=== PATIENT | male | born 1970 | race Caucasian/White ===

== ENCOUNTER 2021-01-31 10:47 | Outpatient (REF) | payer OTHER, SELFPAY ==
[2021-01-31 11:53] LABS: Hematocrit 43.7 % (42-52); Mean Corpuscular HGB Conc 34.3 g/dl (31.0-36.0); Mean Corpuscular Volume 96.3 fL (80-98); Mean Platelet Volume 11.5 fL (9.4-12.4); Platelet Count 230 X10*3/uL (160-400); Red Blood Count 4.54 X10*6/uL (4.60-5.80); Red Cell Distribution Width 12.8 % (11.0-16.0); White Blood Count 7.6 X10*3/uL (4.8-10.8)
[2021-01-31 12:06] LABS: Alanine Aminotransferase 23 U/L (0-40); Albumin Level 4.2 g/dL (3.5-5.0); Alkaline Phosphatase 103 U/L (39-117); Anion Gap 11 (12-20); Aspartate Amino Transferase 23 U/L (5-37); Bilirubin Total 0.7 mg/dL (0.0-1.0); Blood Urea Nitrogen 10 mg/dL (9-16); Calcium 9.4 mg/dL (8.4-10.2); Carbon Dioxide 26 mmol/L (22-29); Chloride 106 mmol/L (96-108); Cholesterol 111 mg/dL; Estimated Glomerular Filt Rate > 60; Glucose Fasting 89 mg/dL (60-99); HDL Cholesterol 32 mg/dL; LDL Cholesterol Calculated 71 mg/dl; Potassium 4.3 mmol/L (3.3-5.1); Sodium 139 mmol/L (135-145); Total Protein 6.5 g/dL (6.5-8.0); Triglycerides 44 mg/dL
[2021-01-31 12:50] LABS: TSH reflex Free T4 1.05 uIU/mL (0.32-4.0)
== END 2021-01-31 10:48 | disposition home or self-care (01) ==
LOC: HO.LAB 10:47
PROVIDERS: PCP Physician Assistant; Visit Provider Physician Assistant
DX: E78.5 Hyperlipidemia, unspecified (principal); I10 Essential (primary) hypertension
CPT/HCPCS: 36415; 80053; 80061; 84443; 85027

== ENCOUNTER 2021-11-28 13:00 | Outpatient (RCR) | payer OTHER, SELFPAY ==
--- NOTE | 2022-04-19 09:08 | MHC.PT.DC ---
[facility] [place] Office [place] Office [place] Office [address] Reuben Barbosa [address] [phone] F: [phone] F: [phone] F: [phone] F: [phone] Physical Therapy Discharge Report Diagnosis: Disorder of the spine - cervical Date of Surgery: n/a Date of Evaluation: 10/03/21 Date of Discharge: 12/10/21 Treatments to Date: 10 Cancellations to Date: No Shows to Date: Discharge Status: Improved Function Independent with HEP Discharge Summary: 11/28/21: pt progressed well over the course of skilled PT. i educated in posture, pathology and progression with HEP. he is I with HEP. He has normal pec flexibility and is improved with his functional ability to work overhead. he is appropriate to d/c to HEP at this time. 11/14/21: reviewed all ex and mechanics. educated on consistency. we will plan to d/c to HEP NV. 11/07/21: pt progressing well overall with less discomfort with overhead activities. improved tolerance for pec stretching and scap strength ex. 10/31/21: pt progressing well with overhead activities, pec stretching, reduced s/s. 10/23/21: pt still with n/t in UEs with prolonged overhead activities. able to perform 10 wall pounds before onset of s/s. 10/17/21: pt with still with L sided shoulder pain prevaling. we added supine punches with blue TB to HEP. we will issue updated HEP NV. 10/10/21: responding well to program so far. will assess how progression translates to functional improvement NV. 10/09/21: pt progressed with strength and postural intervention. he will return tomorrow and we will assess response and progress as tolerated. Patient is a 51 year old R handed male who presents with s/s consistent with cervical pain resulting in n/t and coldness in b/l hands, > on R. 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 Patient past medical history is fairly unremarkable. Current impairments include pain, posture, ROM, strength, activity tolerance and functional mobility. Functional limitations include decreased ability to .perform sustained overhead activities. Patient is motivated with good rehab potential. Skilled PT will address impairments and functional limitations in order to achieve goals. Electronically signed by: Lico Ferreira, PT Please sign and return to therapist. Thank you for your referral.
== END 2022-04-19 09:08 | disposition home or self-care (01) ==
LOC: HO.PTCHIC 13:00
PROVIDERS: PCP Physician Assistant; Visit Provider Physician Assistant
DX: M51.9 Unspecified thoracic, thoracolumbar and lumbosacral intervertebral disc disorder (principal); G95.9 Disease of spinal cord, unspecified
CPT/HCPCS: 97110; 97140; 97161

== ENCOUNTER 2022-02-24 09:30 | Outpatient (REF) | payer OTHER, SELFPAY ==
[2022-02-24 09:55] LABS: Hematocrit 43.8 % (42.0-52.0); Hemoglobin 15.4 g/dl (14.0-18.0); Mean Corpuscular HGB Conc 35.2 g/dl (31.0-36.0); Mean Corpuscular Volume 93.8 fL (80.0-98.0); Mean Platelet Volume 10.9 fL (9.4-12.4); Platelet Count 251 X10*3/uL (160-400); Red Blood Count 4.67 X10*6/uL (4.60-5.80); Red Cell Distribution Width 12.6 % (11.0-16.0); White Blood Count 8.1 X10*3/uL (4.8-10.8)
[2022-02-24 10:07] LABS: Alanine Aminotransferase 16 U/L (0-40); Albumin Level 4.3 g/dL (3.5-5.0); Alkaline Phosphatase 96 U/L (39-117); Anion Gap 12 (12-20); Aspartate Amino Transferase 23 U/L (5-37); Bilirubin Total 0.6 mg/dL (0.0-1.0); Blood Urea Nitrogen 8 mg/dL (9-16); Calcium 9.1 mg/dL (8.4-10.2); Carbon Dioxide 27 mmol/L (22-29); Chloride 106 mmol/L (96-108); Cholesterol 163 mg/dL; Estimated Glomerular Filt Rate > 60; Glucose Fasting 89 mg/dL (60-99); HDL Cholesterol 32 mg/dL; LDL Cholesterol Calculated 117 mg/dl; Potassium 4.3 mmol/L (3.3-5.1); Sodium 141 mmol/L (135-145); Total Protein 6.8 g/dL (6.5-8.0); Triglycerides 73 mg/dL
[2022-02-24 10:27] LABS: TSH reflex Free T4 1.73 uIU/mL (0.32-4.0)
== END 2022-02-24 09:31 | disposition home or self-care (01) ==
LOC: HO.LAB 09:30
PROVIDERS: PCP Physician Assistant; Visit Provider Physician Assistant
DX: E78.5 Hyperlipidemia, unspecified (principal); I10 Essential (primary) hypertension
CPT/HCPCS: 36415; 80053; 80061; 84443; 85027

== ENCOUNTER 2023-04-02 13:20 | Outpatient (AMB) | payer OTHER, SELFPAY ==
--- NOTE | 2023-04-02 13:20 | MHC.PC.OV ---
Vital Signs 04/02/23 13:22 Height 5 ft 8 in Weight 163 lb BMI 24.8 BP 110/64 Blood Pressure Location Lt brachial Position Sitting Pulse 93 Pulse Source Pulse Oximeter Pulse Oximetry (%) 96 Oxygen Delivery Method Room Air Intake Visit Reasons: PE Intake Note: Patient is here today for a physical. 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 Required: No Worm Grower: Not Required per policy Accompanied by: Self / Same As Patient Allergies poppyseed oil Allergy (Unknown, Verified 04/02/23 14:10) BURNING IN CHEST AND LETHARGIC pollen Allergy (Unknown, Uncoded 04/02/23 13:21) rash Medication List - Last Reconciled 04/02/23 by Ronald Potts PA-C epinephrine 0.3 mg IM Q10M PRN lorazepam 1 mg PO BEDTIME 5 days Tobacco use date assessed: 04/02/23 Dental Screening Dental Screen Date: 04/02/23 Did you have a dental visit in the last 12 months?: Yes Did you have a dental problem in the last 6 months where you did not have access to dental care?: No Was dental information given to patient?: Patient has dentist HPI PE HPI Details Patient is a 53 y/o M here today for an annual physical. Patient has a past medical history significant for hyperlipidemia, panic disorder, migraines, IBS-C,? tobacco use disorder. .. .IBS- C:? Reports he has been suffering with IBS constipation type for many years now.? He reports he has a strong sense of anxiety chest before he has a bowel movement.? Has trialed many [id number] that have been unsecucessful. Also was prscribed IBS specific med that was unhelpful.? He does try to increase his fiber and fluids in his diet though feels it is not much. .. Migraines:? Followed by Neurology, takes Tylenol or NSAIDs p.r.n. for headaches.? He is interested in starting an as-needed medication for his migraines.? He believes his migraines are secondary to his GI issues. .. HLD: Has been statin therapy without any side effect.? We have discontinued his cholesterol medication and lipid panel has remained acceptable. Will continue to work on lifestyle modifications on reducing his high cholesterol. Unfortunately continues to smoke and does understand he needs to cut down and completely quit. .. Tobacco use disorder: Smokes 6 per day and reports he has not to willing to reduce his smoking at this time.? He feels smoking cigarettes helps him with his anxiety.. Vaccines:? Up-to-date with COVID vaccine, up-to-date with pneumonia vaccine, up-to-date with flu vaccine, Need Shingles vavccine, UTD with Tdap. . Colorectal cancer screening: Has gotten Colonoscopies every 6 years [facility] Medical History Normal colonoscopy Surgical History History of third molar tooth extraction, class I edentulism History of tooth extraction Family History Father Pancreatic cancer Mother Breast cancer Liver cancer Social History Housing: House Alcohol intake: never Patient Tobacco Use Status: Current everyday Tobacco user Tobacco use type: Cigarette Cigarette Packs Per Day: 0.5 Cigarettes Per Day: 10 e-Cigarette/Vaping Use: Never Used Second Hand Smoke Exposure: Yes service: No Current occupational status: 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 1. Little interest or pleasure in doing things: not at all 2. Feeling down, depressed, or hopeless: several days 3. Trouble falling or staying asleep, or sleeping too much: not at all 4. Feeling tired or having little energy: more than half the days 5. Poor appetite or overeating: not at all 6. Feeling bad about yourself - or that you are a failure or have let yourself or your family down: not at all 7. Trouble concentrating on things, such as reading the newspaper or watching television: several days 8. Moving or speaking so slowly that other people could have noticed. Or the opposite - being so fidgety or restless that you have been moving around a lot more than usual: not at all 9. Thoughts that you would be better off or of hurting yourself in some way: not at all Total score: 4 Depression Screening Interpretation: Negative 46322 - PHQ-9 Billing: Yes Source: Developed by Drs. Severiano Rodríguez, Aide Verde, Dorian Rowan and colleagues, with an educational batsheva from [employer]. Thrive Questionnaire Date Thrive assessed: 04/02/23 I am a: Patient What is your living situation today?: I have a steady place to live Within the past 12 months, did the food you bought not last and you didn't have the money to get more?: Never true Within the past 12 months, did you worry whether your food would run out before you got money to buy more?: Never true Do you have trouble paying for medicines?: No Do you have trouble getting transportation to medical appointments?: No Do you have trouble paying your heating and electricity bill?: No Do you have trouble taking care of your child, family member or friend?: No Do you have trouble with day-to-day activities such as bathing, preparing meals, shopping, managing finances, etc.?: No Are you currently unemployed and looking for a job?: No Are you interested in more education?: No Currently or been in a relationship where the following occur: no concerns reported AUDIT C Alcohol Use Questionnaire (AUDIT-C) 1. How often do you have a drink containing alcohol?: Never Total Score: 0 XOCHITL-7 AMB Questionnaire XOCHITL-7 Date XOCHITL - 7 assessed: 04/02/23 Feeling nervous, anxious, or on edge: 3 = Nearly every day Not being able to stop or control worryin = Not at all Worrying too much about different things: 0 = Not at all Trouble relaxin = Nearly every day Being so restless that it is hard to sit still: 0 = Not at all Becoming easily annoyed or irritable: 1 = Several days Feeling afraid as if something awful might happen: 1 = Several days Total XOCHITL-7 score (0-4 normal; 5-9 mild; 10-14 moderate; 15-21 severe): 8 Source: Developed by Drs. Severiano Rodríguez, Dorian Metcalf and colleagues, with an educational batsheva from [employer]. XOCHITL-7 Assessment Billing XOCHITL-7 Assessment Tool: XOCHITL-7 Assessment 47397 Review of Systems Const Denies body aches, Denies chills, Denies excessive sweating, Denies fatigue, Denies fever(s) and Denies headache(s) Eyes Denies blurry vision ENT Denies dysphagia, Denies vertigo, Denies dizziness, Denies headache(s), Denies hearing loss and Denies tinnitus Card Denies chest pain, Denies chest pain with activity, Denies syncope, Denies irregular heart rhythm and Denies dyspnea Resp Denies chest congestion, Denies cough, Denies hemoptysis, Denies dyspnea and Denies wheezing GI Reports abdominal pain, Denies melena, Denies hematochezia, Denies coffee ground emesis, Reports GI cramping, Denies dysphagia, Reports fecal incontinence, Denies diarrhea, Denies nausea and Denies vomiting Denies difficulty urinating, Denies dysuria, Denies urinary frequency, Denies urinary hesitancy and Denies urinary urgency Musc Denies arthralgias, Denies limited range of motion, Denies muscle cramps and Denies muscle weakness Skin/Breast Denies rash and Denies skin ulcer Neuro Denies Abnormal speech present, Denies confusion, Denies vertigo, Denies dizziness, Denies syncope, Denies headache(s), Denies memory loss and Denies seizure-like activity Psych Denies anxiety, Denies confusion, Denies depression, Denies memory loss, Denies panic attacks and Denies paranoia Endo Denies excessive sweating, Denies fatigue, Denies flushing, Denies polydipsia and Denies polyuria Aller/Immun Denies wheezing Physical exam (Primary Care) Vital Signs: Last Vital Signs Pulse 93 04/02/23 13:22 BP 110/64 04/02/23 13:22 Pulse Ox 96 04/02/23 13:22 Oxygen Delivery Method Room Air 04/02/23 13:22 BMI result Body Mass Index 24.8 Tobacco/Smoking Status: Tobacco use Status Tobacco use date assessed 04/02/23 04/02/23 13:28 Patient Tobacco Use Status Current everyday Tobacco 04/02/23 13:28 Tobacco use type Cigarette 04/02/23 13:28 e-Cigarette/Vaping Use Never Used 04/02/23 13:28 Are you ready to quit: No Tobacco cessation counseling provided: Yes Relapse Prevention: discussed the importance of a supportive environment, discussed negative mood or depression after quitting, weight gain after smoking is common and discussed dietary, exercise and/or lifestyle changes Number of minutes spent counselin CPT code: 72396 - 4-10 Minutes PHQ-9: PHQ-9 Score PHQ-9: Total score 4 04/03/23 08:43 Depression Screening Interpretation: Negative Thrive Assessment: Date of Thrive Assessment Date Thrive assessed 04/02/23 04/02/23 13:28 Currently or been in a relationship where the following occur: no concerns reported Const General: cooperative, comfortable, no acute distress, alert and awake; No confusion Orientation/consciousness: oriented to person, oriented to place, patient oriented x3 and No confusion HENMT Head: Yes normocephalic Ears: external ears normal and TM's normal bilaterally Face and sinus: No sinus tenderness Mouth: Normal oral and palatal mucosa present and tongue normal Teeth and gingiva: dentition normal and gingiva normal Throat: Yes posterior oropharynx normal, Yes tonsils normal and Yes uvula midline Eyes Conjunctivae: conjunctivae normal Sclerae: sclerae normal Pupils: Equal, round and reactive pupils present EOM: EOMs intact bilaterally Direct Ophthalmoscopy: No no photophobia Neck Neck: Yes no lymphadenopathy, No tender and Yes no JVD Thyroid: Thyroid normal Carotids: no bruits Chest Chest palpation & inspection: no tenderness Resp Effort & Inspection: normal respiratory effort, no audible wheezes, not labored and no stridor Auscultation: no crackles, no rales, no rhonchi and no wheezes Cardio Jugular venous distension: no JVD Rate: regular rate, not bradycardic and not tachycardic Rhythm: regular rhythm Bruits: no carotid bruits Peripheral pulses: Peripheral pulses 2+ throughout GI Inspection: Yes normal to inspection, No abdominal wall ecchymosis and No visible herniation Palpation (GI): Soft to palpation, nontender, no guarding, not rigid and No hepatosplenomegaly present Auscultation: normoactive bowel sounds General: Yes no CVA tenderness Back/Spine/Pelvis Back: no CVA tenderness and No back tenderness Cervical Spine: cervical ROM normal Thoracic/Lumbar Spine: thoracic and lumbar spine normal to inspection, straight leg raise negative bilaterally, No thoraco-lumbar ROM limited and No lumbar spinal tenderness Skin Lesions: no lesions Rashes: no rashes Wounds: no wounds Neuro General: oriented to person, oriented to place, patient oriented x3, CN's II-XI intact bilaterally and No confusion Cranial nerves: Yes Equal, round and reactive pupils present and Yes Normal accommodation reflex present Cognition (Neuro): normal cognition Speech: No Abnormal speech present Gait exam (Neuro): Normal gait present Motor exam (neuro): 5/5 motor strength present throughout Extrem Right upper extremity: full ROM; no cyanosis Left upper extremity: full ROM; no cyanosis Right lower extremity: no edema Left lower extremity: no edema Psych Appearance: grossly normal Mental Status: mental status grossly normal Affect: normal affect Attitude: cooperative Thought process: Normal thought process present Assessment and Plan Assessment & Plan (1) Annual physical exam: Code(s): Z00.00 - Encounter for general adult medical examination without abnormal findings (2) Tobacco dependence: Code(s): F17.200 - Nicotine dependence, unspecified, uncomplicated Plan: Patient does understand he needs to quit smoking, declines my offers to start nicotine replacement or medication to help him quit smoking. He will try to cut down his cigarette smoking on his own. (3) HLD (hyperlipidemia): Code(s): E78.5 - Hyperlipidemia, unspecified Qualifiers: Hyperlipidemia type: mixed hyperlipidemia Qualified Code(s): E78.2 - Mixed hyperlipidemia Plan: Currently patient's cholesterol is lifestyle controlled without medication. Was previously statin therapy though has been able to manage with lifestyle.. Will continue monitoring fasting lipid panel. Orders: Orders Comprehensive Turner. Panel Fast 04/02/23 E78.2 - Mixed hyperlipidemia Lipid Panel 04/02/23 E78.2 - Mixed hyperlipidemia Complete Blood Count no Diff 04/02/23 E78.2 - Mixed hyperlipidemia Prostate Specific Antigen Scr 04/02/23 E78.2 - Mixed hyperlipidemia, Z12.5 - Encounter for screening for malignant neoplasm of prostate Coding Level of Care Code Est Pt Prev Care 40-64y(27267) Diagnoses Annual physical exam Z00.00 Tobacco dependence F17.200 Mixed hyperlipidemia E78.2 Hyperlipidemia type: mixed hyperlipidemia Additional Codes XOCHITL-7 Assessment Billing - XOCHITL-7 Assessment Tool: XOCHITL-7 Assessment 05454 ([id number]) Vital Signs *Quality* - CPT code: 40785 - 4-10 Minutes ([id number])
[2023-04-02 13:22] VITALS: BP 110/64; PULSE 93; O2SAT 96; BMI 24.8
== END 2023-04-02 14:32 | disposition home or self-care (01) ==
PROVIDERS: PCP Physician Assistant; Visit Provider Physician Assistant
DX: Z00.00 Encounter for general adult medical examination without abnormal findings (principal); F17.210 Nicotine dependence, cigarettes, uncomplicated; E78.2 Mixed hyperlipidemia
CPT/HCPCS: 99396

== ENCOUNTER 2023-05-16 07:54 | Outpatient (REF) | payer OTHER, SELFPAY ==
[2023-05-16 08:15] LABS: Hematocrit 43.9 % (42.0-52.0); Hemoglobin 14.8 g/dl (14.0-18.0); Mean Corpuscular HGB Conc 33.7 g/dl (31.0-36.0); Mean Platelet Volume 10.8 fL (9.4-12.4); Platelet Count 254 X10*3/uL (160-400); Red Blood Count 4.62 X10*6/uL (4.60-5.80); Red Cell Distribution Width 12.8 % (11.0-16.0); White Blood Count 9.3 X10*3/uL (4.8-10.8)
[2023-05-16 08:44] LABS: Alanine Aminotransferase 15 U/L (0-40); Albumin Level 4.2 g/dL (3.5-5.0); Alkaline Phosphatase 97 U/L (39-117); Anion Gap 12 (12-20); Aspartate Amino Transferase 22 U/L (5-37); Bilirubin Total 0.6 mg/dL (0.0-1.0); Blood Urea Nitrogen 12 mg/dL (9-16); Calcium 9.7 mg/dL (8.4-10.2); Carbon Dioxide 26 mmol/L (22-29); Chloride 106 mmol/L (96-108); Cholesterol 169 mg/dL (<200); Estimated Glomerular Filt Rate > 60; Glucose Fasting 88 mg/dL (60-99); HDL Cholesterol 38 mg/dL (>40); LDL Cholesterol Calculated 112 mg/dL (<100); Potassium 4.1 mmol/L (3.3-5.1); Sodium 140 mmol/L (135-145); Total Protein 6.8 g/dL (6.5-8.0); Triglycerides 96 mg/dL (<150)
[2023-05-16 08:58] LABS: Prostate Specific Antigen Scr 0.59 ng/mL (<0.05-4.0)
== END 2023-05-16 07:55 | disposition home or self-care (01) ==
LOC: HO.LAB 07:54
PROVIDERS: PCP Physician Assistant; Visit Provider Physician Assistant
DX: Z12.5 Encounter for screening for malignant neoplasm of prostate (principal); E78.2 Mixed hyperlipidemia
CPT/HCPCS: 36415; 80053; 80061; 84153; 85027

== ENCOUNTER 2024-04-06 13:25 | Outpatient (AMB) | payer OTHER, SELFPAY ==
--- NOTE | 2024-04-06 13:26 | MHC.PC.OV ---
Vital Signs 04/06/24 13:34 Height 5 ft 8 in Weight 159 lb BMI 24.2 BP 100/70 Blood Pressure Location Lt brachial Position Sitting Pulse 96 Pulse Source Pulse Oximeter Pulse Oximetry (%) 97 Oxygen Delivery Method Room Air Intake Visit Reasons: pe Intake Note: Patient is here today for a physical. 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 Accompanied by: Self / Same As Patient Allergies poppyseed oil Allergy (Unknown, Verified 04/06/24 13:35) BURNING IN CHEST AND LETHARGIC pollen Allergy (Unknown, Uncoded 04/06/24 13:35) rash Medication List - Last Reconciled 04/06/24 by Ronald Potts PA-C epinephrine 0.3 mg IM Q10M PRN lorazepam 1 mg PO BEDTIME 5 days Tobacco use date assessed: 04/02/23 Dental Screening Dental Screen Date: 04/06/24 Did you have a dental visit in the last 12 months?: Yes Did you have a dental problem in the last 6 months where you did not have access to dental care?: No Was dental information given to patient?: Patient has dentist HPI pe HPI Details Patient is a 54 y/o M here today for an annual physical. Patient has a past medical history significant for hyperlipidemia, panic disorder, migraines, IBS-C,? tobacco use disorder. .. .IBS- C:? Reports he has been suffering with IBS constipation type for many years now.? He reports he has a strong sense of anxiety chest before he has a bowel movement.? Has trialed many [id number] that have been unsecucessful. Also was prscribed IBS specific med that was unhelpful.? He does try to increase his fiber and fluids in his diet though feels it is not much. HLD: Has been statin therapy without any side effect.? We have discontinued his cholesterol medication and lipid panel has remained acceptable. Will continue to work on lifestyle modifications on reducing his high cholesterol. Unfortunately continues to smoke and does understand he needs to cut down and completely quit. .. Tobacco use disorder: Smokes 6-10 per day and reports he has not to willing to reduce his smoking at this time.? He feels smoking cigarettes helps him with his anxiety.. Vaccines:? Up-to-date with COVID vaccine, up-to-date with pneumonia vaccine, up-to-date with flu vaccine, Need Shingles vavccine, UTD with Tdap. . Colorectal cancer screening: Has gotten Colonoscopies every 6 years in [place]- likely need new colonoscopy done. [facility] Medical History (Updated 04/06/24 @ 13:57 by Ronald Potts PA-C) Cervical myelopathy Normal colonoscopy Surgical History History of tooth extraction History of third molar tooth extraction, class I edentulism Family History (Updated 04/06/24 @ 13:40 by Ronald Potts PA-C) Father Pancreatic cancer Mother Breast cancer Liver cancer Maternal Grandfather Heart disease Social History Housing: House Alcohol intake: never Patient Tobacco Use Status: Current everyday Tobacco user Tobacco use type: Cigarette Cigarette Packs Per Day: 0.5 Cigarettes Per Day: 10 e-Cigarette/Vaping Use: Never Used Second Hand Smoke Exposure: Yes service: No Current occupational status: 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 1. Little interest or pleasure in doing things: several days 2. Feeling down, depressed, or hopeless: several days 3. Trouble falling or staying asleep, or sleeping too much: not at all 4. Feeling tired or having little energy: several days 5. Poor appetite or overeating: several days 6. Feeling bad about yourself - or that you are a failure or have let yourself or your family down: not at all 7. Trouble concentrating on things, such as reading the newspaper or watching television: several days 8. Moving or speaking so slowly that other people could have noticed. Or the opposite - being so fidgety or restless that you have been moving around a lot more than usual: not at all 9. Thoughts that you would be better off or of hurting yourself in some way: not at all Total score: 5 Depression Screening Interpretation: Positive Depression Screening Follow-up: Existing condition and Declines treatment Depression Screening Done: Yes 19624 - PHQ-9 Billing: Yes Source: Developed by Gino Gutierrezet B.W. Ammon, Dorian Rowan and colleagues, with an educational batsheva from [employer]. Thrive Questionnaire Date Thrive assessed: 04/06/24 I am a: Patient What is your living situation today?: I have a steady place to live Within the past 12 months, did the food you bought not last and you didn't have the money to get more?: Never true Within the past 12 months, did you worry whether your food would run out before you got money to buy more?: Never true Do you have trouble paying for medicines?: No Do you have trouble getting transportation to medical appointments?: No Do you have trouble paying your heating and electricity bill?: No Do you have trouble taking care of your child, family member or friend?: No Do you have trouble with day-to-day activities such as bathing, preparing meals, shopping, managing finances, etc.?: No Are you currently unemployed and looking for a job?: No Are you interested in more education?: I choose not to answer this question Please select the resources that you would like help with: None Currently or been in a relationship where the following occur: No concerns reported THRIVE Score: 0 AUDIT C Alcohol Use Questionnaire (AUDIT-C) 1. How often do you have a drink containing alcohol?: Never 3. How often do you have six or more drinks on one occasion?: Never Total Score: 0 XOCHITL-7 AMB Questionnaire XOCHITL-7 Date XOCHITL - 7 assessed: 04/06/24 Feeling nervous, anxious, or on edge: 1 = Several days Not being able to stop or control worryin = Not at all Worrying too much about different things: 0 = Not at all Trouble relaxin = Several days Being so restless that it is hard to sit still: 0 = Not at all Becoming easily annoyed or irritable: 0 = Not at all Feeling afraid as if something awful might happen: 1 = Several days Total XOCHITL-7 score (0-4 normal; 5-9 mild; 10-14 moderate; 15-21 severe): 3 Source: Developed by Drs. Severiano Rodríguez, Aide Verde, Dorian Rowan and colleagues, with an educational batsheva from [employer]. XOCHITL-7 Assessment Billing XOCHITL-7 Assessment Tool: XOCHITL-7 Assessment 99855 Review of Systems Const Denies body aches, Denies chills, Denies excessive sweating, Denies fatigue, Denies fever(s) and Denies headache(s) Eyes Denies blurry vision ENT Denies dysphagia, Denies vertigo, Denies dizziness, Denies headache(s), Denies hearing loss and Denies tinnitus Card Denies chest pain, Denies chest pain with activity, Denies syncope, Denies irregular heart rhythm and Denies dyspnea Resp Denies chest congestion, Denies cough, Denies hemoptysis, Denies dyspnea and Denies wheezing GI Reports abdominal pain, Denies melena, Reports bloating, Denies hematochezia, Denies coffee ground emesis, Denies dysphagia, Denies diarrhea, Denies nausea and Denies vomiting Denies difficulty urinating, Denies dysuria, Denies urinary frequency, Denies urinary hesitancy and Denies urinary urgency Musc Denies arthralgias, Denies limited range of motion, Denies muscle cramps and Denies muscle weakness Skin/Breast Denies rash and Denies skin ulcer Neuro Denies Abnormal speech present, Denies confusion, Denies vertigo, Denies dizziness, Denies syncope, Denies headache(s), Denies memory loss and Denies seizure-like activity Psych Denies anxiety, Denies confusion, Denies depression, Denies memory loss, Denies panic attacks and Denies paranoia Endo Denies excessive sweating, Denies fatigue, Denies flushing, Denies polydipsia and Denies polyuria Aller/Immun Denies wheezing Physical exam (Primary Care) Vital Signs: Last Vital Signs Pulse 96 04/06/24 13:34 BP 100/70 04/06/24 13:34 Pulse Ox 97 04/06/24 13:34 Oxygen Delivery Method Room Air 04/06/24 13:34 BMI result Body Mass Index 24.2 Tobacco/Smoking Status: Tobacco use Status Tobacco use date assessed 04/02/23 04/06/24 13:27 Patient Tobacco Use Status Current everyday Tobacco 04/06/24 13:27 Tobacco use type Cigarette 04/06/24 13:27 e-Cigarette/Vaping Use Never Used 04/06/24 13:27 Are you ready to quit: No Tobacco cessation counseling provided: Yes Items discussed: Nicotine replacement Relapse Prevention: discussed the importance of a supportive environment, discussed negative mood or depression after quitting, weight gain after smoking is common and discussed dietary, exercise and/or lifestyle changes Number of minutes spent counselin CPT code: 25738 - 4-10 Minutes PHQ-9: PHQ-9 Score PHQ-9: Total score 5 04/06/24 13:27 Depression Screening Interpretation: Positive Depression Screening Follow-up: Existing condition and Declines treatment Thrive Assessment: Date of Thrive Assessment Date Thrive assessed 04/06/24 04/06/24 13:27 Currently or been in a relationship where the following occur: No concerns reported Const General: cooperative, comfortable, no acute distress, alert and awake; No confusion Orientation/consciousness: oriented to person, oriented to place, patient oriented x3 and No confusion HENMT Head: Yes normocephalic Ears: external ears normal and TM's normal bilaterally Face and sinus: No sinus tenderness Mouth: Normal oral and palatal mucosa present and tongue normal Teeth and gingiva: dentition normal and gingiva normal Throat: Yes posterior oropharynx normal, Yes tonsils normal and Yes uvula midline Eyes Conjunctivae: conjunctivae normal Sclerae: sclerae normal Pupils: Equal, round and reactive pupils present EOM: EOMs intact bilaterally Direct Ophthalmoscopy: No no photophobia Neck Neck: Yes no lymphadenopathy, No tender and Yes no JVD Thyroid: Thyroid normal Carotids: no bruits Chest Chest palpation & inspection: no tenderness Resp Effort & Inspection: normal respiratory effort, no audible wheezes, not labored and no stridor Auscultation: no crackles, no rales, no rhonchi and no wheezes Cardio Jugular venous distension: no JVD Rate: regular rate, not bradycardic and not tachycardic Rhythm: regular rhythm Bruits: no carotid bruits Peripheral pulses: Peripheral pulses 2+ throughout GI Inspection: Yes normal to inspection, No abdominal wall ecchymosis and No visible herniation Palpation (GI): Soft to palpation, nontender, no guarding, not rigid and No hepatosplenomegaly present Auscultation: normoactive bowel sounds General: Yes no CVA tenderness Back/Spine/Pelvis Back: no CVA tenderness and No back tenderness Cervical Spine: cervical ROM normal Thoracic/Lumbar Spine: thoracic and lumbar spine normal to inspection, straight leg raise negative bilaterally, No thoraco-lumbar ROM limited and No lumbar spinal tenderness Skin Lesions: no lesions Rashes: no rashes Wounds: no wounds Neuro General: oriented to person, oriented to place, patient oriented x3, CN's II-XI intact bilaterally and No confusion Cranial nerves: Yes Equal, round and reactive pupils present and Yes Normal accommodation reflex present Cognition (Neuro): normal cognition Speech: No Abnormal speech present Gait exam (Neuro): Normal gait present Motor exam (neuro): 5/5 motor strength present throughout Extrem Right upper extremity: full ROM; no cyanosis Left upper extremity: full ROM; no cyanosis Right lower extremity: no edema Left lower extremity: no edema Psych Appearance: grossly normal Mental Status: mental status grossly normal Affect: normal affect Attitude: cooperative Thought process: Normal thought process present Assessment and Plan Assessment & Plan (1) Annual physical exam: Code(s): Z00.00 - Encounter for general adult medical examination without abnormal findings (2) Tobacco dependence: Code(s): F17.200 - Nicotine dependence, unspecified, uncomplicated Plan: Patient does understand he needs to quit smoking, declines my offers to start nicotine replacement or medication to help him quit smoking. He will try to cut down his cigarette smoking on his own. (3) HLD (hyperlipidemia): Code(s): E78.5 - Hyperlipidemia, unspecified Qualifiers: Hyperlipidemia type: mixed hyperlipidemia Qualified Code(s): E78.2 - Mixed hyperlipidemia Plan: Currently patient's cholesterol is lifestyle controlled without medication. Was previously statin therapy though has been able to manage with lifestyle.. Will continue monitoring fasting lipid panel. (4) Colon cancer screening: Code(s): Z12.11 - Encounter for screening for malignant neoplasm of colon Plan: Was getting colonoscopies in [place], has a history of colon polyp, would like to transfer to a closer facility. Will place [facility] referral to [facility] (5) Skin lesion of back: Code(s): L98.9 - Disorder of the skin and subcutaneous tissue, unspecified Plan: Has a concerning skin lesion on his back he would like to have Dermatology evaluate. (6) XOCHITL (generalized anxiety disorder): Code(s): F41.1 - Generalized anxiety disorder Plan: Patient's XOCHITL-7 positive mild anxiety, he is not interested in daily medication or mental health therapy at this time. He reports he is able to manage his anxiety on his own. Orders: Orders Complete Blood Count no Diff Today E78.2 - Mixed hyperlipidemia Prostate Specific Antigen Scr Today E78.2 - Mixed hyperlipidemia, Z12.5 - Encounter for screening for malignant neoplasm of prostate Comprehensive [facility]. Panel Fast Today E78.2 - Mixed hyperlipidemia Lipid Panel Today E78.2 - Mixed hyperlipidemia Referrals Dermatology Referral L98.9 - Disorder of the skin and subcutaneous tissue, unspecified Gastroenterology Referral Z12.11 - Encounter for screening for malignant neoplasm of colon Coding Level of Care Code Est Pt Prev Care 40-64y(66209) Diagnoses Annual physical exam Z00.00 Tobacco dependence F17.200 Mixed hyperlipidemia E78.2 Hyperlipidemia type: mixed hyperlipidemia Colon cancer screening Z12.11 Skin lesion of back L98.9 XOCHITL (generalized anxiety disorder) F41.1 Additional Codes XOCHITL-7 Assessment Billing - XOCHITL-7 Assessment Tool: XOCHITL-7 Assessment 00791 ([id number]) Vital Signs *Quality* - CPT code: 52121 - 4-10 Minutes ([id number])
[2024-04-06 13:34] VITALS: BP 100/70; PULSE 96; O2SAT 97; BMI 24.2
== END 2024-04-06 13:57 | disposition home or self-care (01) ==
PROVIDERS: PCP Physician Assistant; Visit Provider Physician Assistant
DX: Z00.00 Encounter for general adult medical examination without abnormal findings (principal); F17.210 Nicotine dependence, cigarettes, uncomplicated; E78.2 Mixed hyperlipidemia; Z12.11 Encounter for screening for malignant neoplasm of colon; L98.9 Disorder of the skin and subcutaneous tissue, unspecified; F41.1 Generalized anxiety disorder
CPT/HCPCS: 99396

== ENCOUNTER 2024-11-09 14:21 | Outpatient (REF) | payer OTHER, SELFPAY ==
[2024-11-09 17:47] LABS: Lipase 17 U/L (8-78)
--- OUTSIDE RECORDS SUMMARY | 2024-11-09 18:02 | XMS_ITS | Encounter Summary ---
Author Organization [facility] Address [address] [place] [address] Care Team Providers Care Corporate Tutor Name Role Phone Randi Zayas MD Primary Care Provider [phone] Encounter Details Date Type Department Care Team (Late st Contact Info) Description 03/18/2024 Telephone [facility] [address] [place] [phone] Antony More MD [address] [place] [address] Social History Tobacco Use Types Packs/Day Years [...] on filedocumented in this encounter Care Teams Corporate Tutor Relationship Specialty Start Date End Date Randi Zayas MD [address] [place] [address] [place] [address] PCP - General Cardiology 05/06/12 documented as of this encounter
--- OUTSIDE RECORDS SUMMARY | 2024-11-09 18:02 | XMS_ITS | Encounter Summary ---
Author Organization [facility] Address [address] [place] [address] Care Team Providers Care Test Borer Name Role Phone Yamila Gill MD Primary Care Provider [phone] Unknown Pcp, Non Rmg Primary Care Provider Unava Randi Salas MD Primary Care Provider [phone] Encounter Details Date Type Department Care Team ([facility] st Contact Info) Description 05/24/2010 Orders Only [facility] Gastroenterology [address] [place] [phone] Antony Lizarraga PA-C [address] [place] [phone] Social History Tobacco Use Types Packs/Day Years [...] of this encounter Procedures * Due to [place] [employer] law, this organization might not be sharing negative HIV tests. Procedure Name Priority Date/Time Associated Diagnosis Comments THYROID CASCADE Routine 05/24/2010 Constipation documented in this encounter Results * Due to [place] [employer] law, this organization might not be sharing negative HIV tests. * THYROID CASCADE (05/24/2010) TSH, THYROTROPIN 2.037 0.40 - 4.50 UIU/ML [facility] 05/24/2010 05/24/2010 4:5 1 PM EDT Antony Lizarraga PA-C LABORATORY Final Resu lt [facility] [address] [place] [address] documented in this encounter Visit Diagnoses Diagnosis Constipation Unspecified constipation documented in this encounter Care Teams Test Borer Relationship Specialty Start Date End Date Yamila Gill MD PCP - General Internal Medicine 04/24/10 11/26/11 Unknown Pcp, Non Rmg PCP - General 11/27/11 05/05/12 Randi Zayas MD [address] [place] [address] [place] [address] PCP - General Cardiology 05/06/12 documented as of this encounter
--- OUTSIDE RECORDS SUMMARY | 2024-11-09 18:02 | XMS_ITS | Encounter Summary ---
Author Organization [facility] Address [address] [place] [address] Care Team Providers Care Toll Collector Name Role Phone Yamila Gill MD Primary Care Provider [phone] Unknown Pcp, Non Rmg Primary Care Provider Unava Randi Salas MD Primary Care Provider [phone] Encounter Details Date Type Department Care Team (Late st Contact Info) Description 05/10/2010 Orders Only [facility] Primary Care Internal Medicine [address] [place] [address] [address] [place] [phone] Yamila Gill MD [address] [address] Social History Tobacco Use Types Packs/Day Years [...] of this encounter Procedures * Due to [place] state law, this organization might not be [...] in this encounter Results * Due to [place] state law, this organization might not be [...] MD LABORATORY Final Result Performing Organization Address City/State/[facility] de Phone Number [facility] [address] [place] [address] * URINALYSIS, COMPLETE (DIP & MICRO) (05/10/2010) [...] DAY RESULT Final Result [facility] [address] [place] [address] * COMPREHENSIVE METABOLIC PANEL W/GLOMERULAR FILT. RATE [...] MD LABORATORY Final Result [facility] [address] [place] [address] * (ABNORMAL) CBC 5 PART DIFF (05/10/2010) [...] DAY RESULT Final Result [facility] [address] [place] [address] documented in this encounter Visit Diagnoses Diagnosis Physical exam, annual Routine general medical examination at a health care facility documented in this encounter Care Teams Toll Collector Relationship Specialty Start Date End Date Yamila Gill MD PCP - General Internal Medicine 04/24/10 11/26/11 Unknown Pcp, Non Rmg PCP - General 11/27/11 05/05/12 Randi Zayas MD [address] [place] [address] [place] [address] PCP - General Cardiology 05/06/12 documented as of this encounter
--- OUTSIDE RECORDS SUMMARY | 2024-11-09 18:02 | XMS_ITS | Encounter Summary ---
Author Organization [facility] Address [address] [place] [address] Care Team Providers Care Housing Assistant Property Manager Name Role Phone Randi Zayas MD Primary Care Provider [phone] Reason for Visit * Reason Comments Appointment Encounter Details Date Type Department Care Team ([facility] st Contact Info) Description 11/18/2018 Telephone [facility] [address] [place] [phone] Antony More MD [address] [place] [address] Appointment Social History Tobacco Use Types Packs/Day [...] on filedocumented in this encounter Care Teams Housing Assistant Property Manager Relationship Specialty Start Date End Date Randi Zayas MD [address] [place] [address] Dr [place], RONDA [address] PCP - General Cardiology 05/06/12 documented as of this encounter
--- OUTSIDE RECORDS SUMMARY | 2024-11-09 18:02 | XMS_ITS | Clinical Summary ---
Author Organization [facility] Address [address] [place] [address] Care Team Providers Care Coremaker Apprentice Name Role Phone Randi Zayas MD Primary Care Provider [phone] Allergies Active Allergy Reactions Criticality Noted Date [...] complete this topic Procedures * Due to [place] [employer] law, this organization might not be sharing [...] to Health Maintenance Results * Due to [place] [employer] law, this organization might not be sharing [...] MD LABORATORY Final Result [facility] [address] [place] [address] from Last 3 Months or Most Recently Relevant to Health Maintenance Insurance [employer] [facility] [employer] [facility] [employer] Care Teams Coremaker Apprentice Relationship Specialty Start Date End Date Randi Zayas MD [address] [place] [address] [place] [address] PCP - General Cardiology 05/06/12
--- OUTSIDE RECORDS SUMMARY | 2024-11-09 18:02 | XMS_ITS | Encounter Summary ---
Author Organization [facility] Address [address] [place] [address] Care Team Providers Care Tanbark Peeler Name Role Phone Randi Zayas MD Primary Care Provider [phone] Reason for Visit * Reason Onset Date Comments Appointment 06/21/2015 Encounter Details Date Type Department Care Team ([facility] st Contact Info) Description 06/21/2015 Telephone [facility] [address] [place] [phone] Antony More MD [address] [place] [address] Appointment Social History Tobacco Use Types Packs/Day [...] on filedocumented in this encounter Care Teams Tanbark Peeler Relationship Specialty Start Date End Date Randi Zayas MD [address] [place] [address] Dr [place], RONDA [address] PCP - General Cardiology 05/06/12 documented as of this encounter
[2024-11-10 22:32] LABS: Transglutaminase IgA <1.0 U/mL
== END 2024-11-09 14:22 | disposition home or self-care (01) ==
LOC: HO.LAB 14:21
PROVIDERS: PCP Physician Assistant; Visit Provider Nurse Practitioner Family
DX: R10.9 Unspecified abdominal pain (principal)
CPT/HCPCS: 36415; 83690; 86364

== ENCOUNTER 2024-11-09 14:21 | Outpatient (AMB) | payer OTHER, SELFPAY ==
--- NOTE | 2024-11-09 14:32 | MHC.OFFVIS ---
Vital Signs 11/09/24 14:33 Height 5 ft 8 in Weight 156 lb 1.396 oz BMI 23.7 BP 124/68 Blood Pressure Location Rt brachial Position Sitting Pulse 68 Pulse Source Pulse Oximeter Pulse Oximetry (%) 97 Oxygen Delivery Method Room Air Intake Visit Reasons: screening for malignant neoplasm of colon Intake Note: NEW PATIENT for repeat colo. Last ~ 5 years ago. Chief Complaint; C/O epigastric pain and mild dysphagia or irritation upon swallowing per pt. Pt also reports intermittent constipation with varying severity. Pt taking psyllium fiber per last colo report (scanned into chart). No additional sx or concerns at this time. 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 male with past medical history of tobacco dependence, migraine headaches, IBS, GERD, hyperlipidemia is here today for pre colonoscopy screening.? Patient was sent to us by his PCP.? Patient reports that he had his 1st colonoscopy in his early 40s for digestive issues: Like abdominal bloating, pain, constipation, sudden urge to have a bowel movement. Patient had polyps at that time and recommendation was made for patient to repeat colonoscopy in 5 years which was done in 2020 ? Denies any personal or family history of CRC.? Negative for history of sleep apnea.? Denies any history of cardiac, renal, pulmonary, or hepatic disease.?? No history of infectious? diseases like hepatitis A, B, C, HIV or tuberculosis.? Patient is not on any anticoagulation. Patient reports that in the past he had no anesthesia during his colonoscopies. However patient is reporting epigastric pain occasional dysphagia. He is continuing to smoke half a pack a day. He has very important job that requires him to be sharp at work and would rather avoid Anesthesia, however we will be sending him for upper endoscopy so he agrees to having anesthesia. 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 Cognitive needs: No Hearing needs: No Vision needs: Yes (glasses) Review of Systems Const Denies weight gain and Denies weight loss ENT Reports no additional complaints, Reports dysphagia and Denies odynophagia Card Reports no additional complaints Resp Reports no additional complaints GI Reports abdominal pain (Epigastric), Denies belching, Denies melena, Reports bloating, Denies change in bowel habits, Reports constipation, Reports dysphagia, Denies excessive flatus, Denies dyspepsia, Reports heartburn, Denies diarrhea, Reports loose stools (Occasional), Denies nausea, Denies odynophagia and Denies vomiting Reports no additional complaints Musc Reports no additional complaints Neuro Reports no additional complaints Psych Reports no additional complaints Endo Reports no additional complaints Physical Exam Vital Signs: Last Vital Signs Pulse 68 11/09/24 14:33 BP 124/68 11/09/24 14:33 Pulse Ox 97 11/09/24 14:33 Oxygen Delivery Method Room Air 11/09/24 14:33 BMI result Body Mass Index 23.7 Const General: healthy appearing, no acute distress and well developed Nutritional Appearance: well nourished Orientation/consciousness: patient oriented x3 Resp Effort & Inspection: normal respiratory effort, able to speak in complete sentences, no tracheal deviation and symmetric chest movement Auscultation: clear to auscultation bilaterally Cardio Rate: regular rate GI Inspection: Yes normal to inspection and No distended Palpation (GI): Soft to palpation, not firm, nontender and No hepatosplenomegaly present Auscultation: normal bowel sounds General: Yes no CVA tenderness Back/Spine/Pelvis Back: no CVA tenderness Skin General skin exam: elasticity normal, turgor normal and dry skin Neuro General: patient oriented x3 Psych Appearance: grossly normal Mental Status: mental status grossly normal Assessment & Plan Assessment & Plan (1) Colon cancer screening: Code(s): Z12.11 - Encounter for screening for malignant neoplasm of colon Category: Medical (2) IBS (irritable colon syndrome): Code(s): K58.9 - Irritable bowel syndrome, unspecified Category: Medical Qualifiers: Irritable bowel syndrome type: with constipation Qualified Code(s): K58.1 - Irritable bowel syndrome with constipation (3) Chronic idiopathic constipation: Code(s): K59.04 - Chronic idiopathic constipation (4) Postprandial epigastric pain: Code(s): R10.13 - Epigastric pain (5) Postprandial abdominal bloating: Code(s): R14.0 - Abdominal distension (gaseous) (6) Dysphagia: Code(s): R13.10 - Dysphagia, unspecified Qualifiers: Dysphagia type: esophageal phase Qualified Code(s): R13.19 - Other dysphagia Plan Patient denies any cardiac or respiratory symptoms.? Patient never had anesthesia in the past. Denies any history of sleep apnea.? No history infectious diseases in the past or present.? Not on any anticoagulation therapy.? No family or personal history of colon cancer.? Patient denies melena, hematochezia, unintentional weight loss or ribbon like stools.? Patient reports epigastric pain postprandially as well as left upper quadrant pain. Will send him to check for celiac and chronic pancreatitis. Patient will be sent for upper endoscopy. Reports dysphagia without odynophagia. Reports postprandial abdominal bloating, constipation. Symptoms worse with stress. Occasional urge to go to the bathroom quickly. Diagnosed with IBS in the past. Discussed at length the pre-procedure,? prep, diet & medications as well as what to expect prior, during and after the procedure.?? Stressed the importance of good bowel prep.? Recommended the use of Vaseline or Calmoseptine OTC & baby wipes with bowel movements to promote comfort.? ?Patient verbalizes understanding and agrees to plan of care.? He was given the opportunity to ask questions and all questions answered.? We will see him after the procedure.? Orders: Orders Lipase Today R10.9 - Unspecified abdominal pain Transglutaminase IgA Today R10.9 - Unspecified abdominal pain Medications: New bisacodyl (Dulcolax (bisacodyl)) 10 mg (2 x 5 mg) PO BEDTIME 180 tabs 4RF polyethylene glycol 3350 (Miralax) As directed by gastroenterology department at [facility] 238 grams PO ONCE 238 grams 0RF Z12.11 - Encounter for screening for malignant neoplasm of colon Coding Level of Care Code New Pt Level 4 (42804) Diagnoses Colon cancer screening Z12.11 Irritable bowel syndrome with constipation K58.1 Irritable bowel syndrome type: with constipation Chronic idiopathic constipation K59.04 Postprandial epigastric pain R10.13 Postprandial abdominal bloating R14.0 Esophageal dysphagia R13.19 Dysphagia type: esophageal phase Time Spent (min) 45 Comment 35 minutes spent with patient and additional 10 minutes spent reviewing his records
[2024-11-09 14:33] VITALS: BP 124/68; PULSE 68; O2SAT 97; BMI 23.7
--- OUTSIDE RECORDS SUMMARY | 2024-11-09 16:46 | XMS_ITS | Encounter Summary ---
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 Gastroenterology [address] [place] [address] Antony Lizarraga PA-C [address] [place] [id number] Social History Tobacco Use Types Packs/Day Years Used Date Smoking Tobacco: Every Day Cigarettes Smokeless Tobacco: Never Alcohol Use Standard Drinks/Week Comments Yes 0 (1 standard drink = 0.6 oz pur e alcohol) once/month Sex and Gender Information Value Date Recorded Sex Assigned at Not on file Legal Sex Male 11:07 PM EDT Gender Identity Not on file Sexual Orientation Not on file documented as of this encounter Plan of Treatment Not on file documented as of this encounter Procedures * Due to [place] Just Above Cost law, this organization might not be sharing negative HIV tests. Procedure Name Priority Date/Time Associated Diagnosis Comments THYROID CASCADE Routine 05/24/2010 Constipation documented in this encounter Results * Due to [place] Just Above Cost law, this organization might not be sharing negative HIV tests. * THYROID CASCADE (05/24/2010) TSH, THYROTROPIN 2.037 0.40 - 4.50 UIU/ML [facility] 05/24/2010 05/24/2010 4:5 1 PM EDT Antony Lizarraga PA-C LABORATORY Final Resu lt [facility] [address] [place] [address] documented in this encounter Visit Diagnoses Diagnosis Constipation Unspecified constipation documented in this encounter Care Teams Casting Plug Assembler Relationship Specialty Start Date End Date Yamila Gill MD PCP - General Internal Medicine 04/24/10 11/26/11 Unknown Pcp, Non [facility] PCP - General 11/27/11 05/05/12 Randi Zayas MD [address] [place] [address] [place] [address] PCP - General Cardiology 05/06/12 documented as of this encounter
--- OUTSIDE RECORDS SUMMARY | 2024-11-09 16:46 | XMS_ITS | Encounter Summary ---
Author Organization [facility] Address [address] [place] [address] Care Team Providers Care Elevated Work Platform Operator Name Role Phone Yamila Gill MD Primary Care Provider [phone] Unknown Pcp, Non Rmg Primary Care Provider Unava Randi Salas MD Primary Care Provider [phone] Encounter Details Date Type Department Care Team (Late st Contact Info) Description 05/10/2010 Orders Only [facility] Primary Care Internal Medicine [address] [place] [address] [address] [place] [address] Yamila Gill MD [address] [address] Social History Tobacco Use Types Packs/Day Years Used Date Smoking Tobacco: Every Day Cigarettes Alcohol Use Standard Drinks/Week Comments Not Asked 0 (1 standard drink = 0.6 oz pur e alcohol) Sex and Gender Information Value Date Recorded Sex Assigned at Not on file Legal Sex Male 11:07 PM EDT Gender Identity Not on file Sexual Orientation Not on file documented as of this encounter Progress Notes * Yamila Gill MD - 05/11/2010 10:56 AM EDTQuick Note: Labs all OK Will d/w pt on f/u visit documented in this encounter Plan of Treatment Not on file documented as of this encounter Procedures * Due to [place] state law, this organization might not be sharing negative HIV tests. Procedure Name Priority Date/Time Associated Diagnosis Comments COMPREHENSIVE METABOLIC PANEL W/GLOMERULAR FILT. RATE (EGFR) Routine 05/10/2010 Physical exam, annual LIPID PANEL + CARDIAC RISK WITH REFLEX TO LDL DIRECT Routine 05/10/2010 Physical exam, annual CBC 5 PART DIFF Routine 05/10/2010 Physical exam, annual URINALYSIS, COMPLETE (DIP & MICRO) Routine 05/10/2010 Physical exam, annual documented in this encounter Results * Due to [place] state law, this organization might not be sharing negative HIV tests. * LIPID PANEL + CARDIAC RISK WITH REFLEX TO LDL DIRECT (05/10/2010) CHOLESTEROL, TOTAL 160 125 - 200 MG/DL [facility] TRIGLYCERIDES 64 30 - 149 MG/DL [facility] HDL-CHOLESTEROL 40 40 - 77 MG/DL [facility] LDL-CHOLESTEROL 107 62 - 130 MG/DL [facility] Comment: RISK CATEGORY: ??LDL-CHOLESTEROL GOAL CHD AND CHD RISK EQUIVALENTS: ??<100 MULTIPLE (2+) FACTORS: ??<130 ZERO TO ONE RISK FACTOR: ??<160 CHD RELATIVE RISK RATIO (TOTAL/HDL) 4.00 0.0 - 5.0 [facility] Comment:(0.7 X AVERAGE) 05/10/2010 05/10/2010 6:2 3 PM EDT us Yamila Gill MD LABORATORY Final Result Performing Organization Address City/State/[facility] de Phone Number [facility] [address] [place] [address] * URINALYSIS, COMPLETE (DIP & MICRO) (05/10/2010) COLOR (URINE) YELLOW YELLOW [facility] APPEARANCE (URINE) CLEAR CLEAR [facility] SPECIFIC GRAVITY 1.022 1.001 - 1.035 [facility] PH (URINE) 6.0 5.0 - 8.0 [facility] PROTEIN (URINE) NEG NEG [facility] GLUCOSE (URINE) NEG NEG [facility] Ketones (Urine) NEG NEG [facility] BILIRUBIN (URINE) NEG NEG [facility] BLOOD (URINE) NEG NEG [facility] WBC (URINE) NEG NEG [facility] NITRITE (URINE) NEG NEG [facility] WBC (URINE) 0 0-4/HPF [facility] RBC (Urine Sed) 0 0-3/HPF [facility] EPITHELIAL CELLS.SQUAMOUS (URINE SED) 0 0-5/HPF [facility] EPITHELIAL CELLS.TRANSITI ONAL (URINE SED) 0 0-5/HPF [facility] EPITHELIAL CELLS.RENAL (URINE SED) 0 0-3/HPF [facility] BACTERIA (URINE) NONE SEEN NONE SEEN [facility] 05/10/2010 05/10/2010 6:2 3 PM EDT us Yamila Gill MD LAB SAME DAY RESULT Final Result [facility] [address] [place] [address] * COMPREHENSIVE METABOLIC PANEL W/GLOMERULAR FILT. RATE (EGFR) (05/10/2010) CALCIUM 9.5 8.6 - 10.2 MG/DL [facility] BUN 11 7 - 25 MG/DL [facility] CREATININE 0.89 0.78 - 1.34 MG/DL [facility] Total Protein 7.2 6.2 - 8.3 G/DL [facility] ALBUMIN 4.9 3.7 - 5.1 G/DL [facility] GLOBULIN 2.3 2.1 - 3.7 G/DL [facility] ALBUMIN/GLOBULIN RATIO 2.1 1.0 - 2.1 [facility] BILIRUBIN TOTAL 0.5 0.2 - 1.2 MG/DL [facility] Glucose 81 65 - 99 MG/DL [facility] ALKALINE PHOSPHATASE 67 40 - 115 U/L [facility] AST (SGOT) 22 10 - 40 U/L [facility] ALT (SGPT) 19 9 - 60 U/L [facility] SODIUM 139 135 - 146 MMOL/L [facility] POTASSIUM 4.4 3.5 - 5.3 MMOL/L [facility] CHLORIDE 105 98 - 110 MMOL/L [facility] CARBON DIOXIDE 26 21 - 33 MMOL/L [facility] GFR > 60 60 AND ABOVE [facility] Comment:UNITS: ML/MIN/1.73 S Q METERS EGFR > 60 60 AND ABOVE [facility] Comment:UNITS: ML/MIN/1.73 S Q METERS 05/10/2010 05/10/2010 6:2 3 PM EDT Narrative [facility] - 05/11/2010 2:47 AM EDT Please note that this estimated GFR does not include an adjustment for the patient's height or weight, and can therefore, be viewed as reliable only for patients with heights between 60 and 72 . More precise quantification using a 24-hour urine sample or height-based algorithm is recommended for patients outside of this range of height and for those individuals with more precise needs for GFR calculation. Yamila Gill MD LABORATORY Final Result [facility] [address] [place] [address] * (ABNORMAL) CBC 5 PART DIFF (05/10/2010) WHITE BLOOD COUNT 7.5 3.8 - 10.8 THOUS/UL [facility] RBC 4.71 4.20 - 5.80 MIL/UL [facility] Hemoglobin 15.9 13.2 - 17.1 G/DL [facility] HCT (HEMATOCRIT) 46.5 38.5 - 50.0 % [facility] MCV 98.7 80.0 - 100.0 FL [facility] MCH 33.8(H) 27.0 - 33.0 PG [facility] MCHC 34.3 32.0 - 36.0 G/DL [facility] BAND % 0 0 - 5 % [facility] NEUTROPHIL % 60 48 - 75 % [facility] LYMPHOCYTE % 27 17 - 40 % [facility] MONOCYTE % 10 0 - 14 % [facility] EOSINOPHIL % 3 0 - 5 % [facility] BASOPHIL % 0 0 - 3 % [facility] ATYPICAL LYMPHOCYTE % 0 0 - 5 % [facility] PLATELETS 213 140 - 400 THOUS/UL [facility] BANDS # 0 0 - 750 CELLS/MCL [facility] NEUTROPHILS # 4500 1500 - 7800 CELLS/MCL [facility] LYMPHOCYTES # 2025 850 - 3900 CELLS/MCL [facility] MONOCYTES # 750 200 - 950 CELLS/MCL [facility] EOSINOPHILS # 225 15 - 550 CELLS/MCL [facility] BASOPHILS # 0 0 - 200 CELLS/MCL [facility] ATYPICAL LYMPHOCYTES # 0 0 - 200 CELLS/MCL [facility] RDW 13.3 11.0 - 15.0 % [facility] MPV 10.3 7.5 - 11.5 FL [facility] 05/10/2010 05/10/2010 6:2 3 PM EDT Yamila Gill MD LAB SAME DAY RESULT Final Result [facility] [address] [place] [address] documented in this encounter Visit Diagnoses Diagnosis Physical exam, annual Routine general medical examination at a health care facility documented in this encounter Care Teams Elevated Work Platform Operator Relationship Specialty Start Date End Date Yamila Gill MD PCP - General Internal Medicine 04/24/10 11/26/11 Unknown Pcp, Non Rmg PCP - General 11/27/11 05/05/12 Randi Zayas MD [address] [place] [address] [place] [address] PCP - General Cardiology 05/06/12 documented as of this encounter
--- OUTSIDE RECORDS SUMMARY | 2024-11-09 16:46 | XMS_ITS | Encounter Summary ---
Author Organization [facility] Address [address] [place] [address] Care Team Providers Care Machine Clipper Name Role Phone Randi Zayas MD Primary Care Provider [phone] Reason for Visit * Reason Comments Appointment Encounter Details Date Type Department Care Team ([facility] st Contact Info) Description 11/18/2018 Telephone [facility] [address] [place] [phone] Antony More MD [address] [place] [address] Appointment Social History Tobacco Use Types Packs/Day Years Used Date Smoking Tobacco: Every Day Cigarettes Smokeless Tobacco: Never Comments:5 cigarettes/day Alcohol Use Standard Drinks/Week Comments Yes 0 (1 standard drink = 0.6 oz pur e alcohol) once/month Sex and Gender Information Value Date Recorded Sex Assigned at Not on file Legal Sex Male 11:07 PM EDT Gender Identity Not on file Sexual Orientation Not on file documented as of this encounter Miscellaneous Notes * Telephone Encounter - Livier Yu - 11/18/2018 10:42 AM EDT Patient due for a f/u colonoscopy. I called and spoke to Arcelia in 's office Mohanvioletta is still there patient. I will send a notification to the doctor and to the patient. documented in this encounter Plan of Treatment Not on file documented as of this encounter Visit Diagnoses Not on filedocumented in this encounter Care Teams Machine Clipper Relationship Specialty Start Date End Date Randi Zayas MD [address] [place] [address] Dr [place], RONDA [address] PCP - General Cardiology 05/06/12 documented as of this encounter
--- OUTSIDE RECORDS SUMMARY | 2024-11-09 16:46 | XMS_ITS | Encounter Summary ---
Author Organization [facility] Address [address] [place] [address] Care Team Providers Care Slab Installer Name Role Phone Randi Zayas MD Primary Care Provider [phone] Encounter Details Date Type Department Care Team (Late st Contact Info) Description 03/18/2024 Telephone [facility] [address] [place] [phone] Antony More MD [address] [place] [phone] Social History Tobacco Use Types Packs/Day Years Used Date Smoking Tobacco: Every Day Cigarettes Smokeless Tobacco: Never Comments:5 cigarettes/day Alcohol Use Standard Drinks/Week Comments Yes 0 (1 standard drink = 0.6 oz pur e alcohol) once/month Intimate Partner Violence Answer Date R ecorded Fear of Current or Ex-Partner Not on file Emotionally Abused Not on file 03/19/2023 Physically Abused Not on file 03/19/2023 Sexually Abused Not on file 03/19/2023 Feel Safe at Home Not on file 03/19/2023 Sex and Gender Information Value Date Recorded Sex Assigned at Not on file Legal Sex Male 11:07 PM EDT Gender Identity Not on file Sexual Orientation Not on file documented as of this encounter Miscellaneous Notes * Telephone Encounter - Livier Yu - 03/18/2024 2:27 PM EDT Patient due for a f/u colonoscopy operative note faxed to the pcp office. documented in this encounter Plan of Treatment Not on file documented as of this encounter Visit Diagnoses Not on filedocumented in this encounter Care Teams Slab Installer Relationship Specialty Start Date End Date Randi Zayas MD [address] [place] [address] [place] [address] PCP - General Cardiology 05/06/12 documented as of this encounter
--- OUTSIDE RECORDS SUMMARY | 2024-11-09 16:46 | XMS_ITS | Encounter Summary ---
Author Organization [facility] Address [address] [place] [address] Care Team Providers Care Operator Automated Process Name Role Phone Randi Zayas MD Primary Care Provider [phone] Reason for Visit * Reason Onset Date Comments Appointment 06/21/2015 Encounter Details Date Type Department Care Team ([facility] st Contact Info) Description 06/21/2015 Telephone [facility] [address] [place] [phone] Antony More MD [address] [place] [address] Appointment Social History Tobacco Use Types Packs/Day [...] * Telephone Encounter - Livier Yu - 06/21/2015 11:28 AM EST spoke to Dr. Zayas's office Hank is still there patient he is due for a f/u colonoscopy. I will send a notification letter to the patient and to the doctor documented in this encounter Plan of Treatment Not on file documented as of this encounter Visit Diagnoses Not on filedocumented in this encounter Care Teams Operator Automated Process Relationship Specialty Start Date End Date Randi Zayas MD [address] [place] [address] Dr [place], RONDA [address] PCP - General Cardiology 05/06/12 documented as of this encounter
--- OUTSIDE RECORDS SUMMARY | 2024-11-09 16:46 | XMS_ITS | Clinical Summary ---
Author Organization [facility] Address [address] [place] [address] Care Team Providers Care State Superintendent Of Schools Name Role Phone Randi Zayas MD Primary Care Provider [phone] Allergies Active Allergy Reactions Criticality Noted Date Comments Oxycodone-Acetaminophen Dizzy/Confused 05/05/20 10 Medications No known medications Active Problems Problem Noted Date Diagnosed Date Personal history of colonic polyps 05/03/2012 Overview (05/04/2019): 06/13/[address] More, 2-3 yr repeat recommended due for Incidental sessile cecal polyp Colonic Polyp (Cecum), Biopsy: - Tubular adenoma. Colon 05/2012 recommend 1yr f/u 02-01- 18 month repeat Colon 11/2015 recommend 3yr f/u Colon 04/2019 recommend 5yr f/u Constipation 06/02/2010 Overview (06/24/2015): , Shakiness after eating 06/02/2010 chills after eating 06/02/2010 Immunizations Name Administration Dates Next Due COVID-19, mRNA (Pfizer Pre F all 2022) Monovalent, 30 mcg/0.3 ml 07/19/2021,12/15/2020,11/24/2020 Covid-19, mRNA (Pfizer Pre F all 2022) Bivalent, 30 mcg/0.3 ml delfin-sucrose (12+) dose 05/12/2022 Covid-19, mRNA (Pfizer Pre F all 2022) Monovalent, 30 mcg/0.3 ml delfin-sucrose (12+) 12/11/2021 Influenza,injectable,MDCK, Prsrv Fr,Quad 022 Influenza,injectable,quad,Prsrv Fr 06/21/2023, Influenza,injectable,quad,preservative 7 Influenza,seasonal,trivalent ,preservative (FLUZONE MDV) 05/09/2016,05/25/2015,05/03/2014 PPV23 (Pneumovax) 03/27/2021 Tdap 03/28/2022 influenza,seasonal,trivalent ,PF (Fluzone, Fluarix, Flulaval) 07/02/2024 Family History Medical History Relation Name Comments Gastrointestinal Disorder Father pa nc ca Gastrointestinal Disorder Mother li erin ca Relation Name Status Comments Father Mother Social History Tobacco Use Types Packs/Day Years [...] on file Sexual Orientation Not on file Last Filed Vital Signs Vital Sign Reading Time Taken Comments Blood Pressure 104/70 06/02/2010 11:03 AM EDT Pulse 92 06/02/2010 11:03 AM EDT Temperature 36.8 ??C (98.2 ??F) 05/05/2010 10:34 AM E DT Respiratory Rate 16 04/27/2010 4:58 PM EDT Oxygen Saturation 98% 06/02/2010 11:03 AM EDT Inhaled Oxygen Concentration - - Weight 74.4 kg (164 lb) 05/24/2010 9:07 AM EDT Height 171.5 cm (5' 7.5 ) 05/05/2010 10:34 AM ED T Body Mass Index 25.31 05/05/2010 10:34 AM EDT Plan of Treatment Health Maintenance Due Date Last Done Comments Hepatitis C Screening 1971 Hep B (1 of 3 - 19+ 3-dose series) 1990 Zoster (Shingrix) (1 of 2) 2021 Pneumococcal 50+ years (2 of 2 - PCV) 03/27/2022 03/27/2021 COVID-19 Vaccine ( season) 2024 05/12/2022, 12/11/2021, 07/19/2021, Additional history exists Colonoscopy 05/04/2024 05/04/2019, 11/27, 02/01/2014, Additional history exists DTaP/Tdap/Td (2 - Td or Tdap) 03/28/2032 03/28/2022 LDL Cholesterol Discontinued 05/10/2010, 05/10/2010 Influenza Completed 07/02/2024, 05/30, 06/12/2022, Additional history exists HPV Vaccine Aged Out No longer eligi ble based on patient's age to complete this topic Hep A Aged Out No longer eligi ble based on patient's age to complete this topic Hib Aged Out No longer eligi ble based on patient's age to complete this topic Meningococcal ACWY Aged Out No longer eligible based on patient's age to complete this topic Procedures * Due to [place] [employer] law, this organization might not be sharing negative HIV tests. Procedure Name Priority Date/Time Associated Diagnosis Comments COLONOSCOPY, FLEXIBLE; WITH REMOVAL OF TUMOR(S), POLYP(S), OR OTHER LESION(S) BY SNARE TECHNIQUE Routine 05/04/2019 Polyp of colon, unspecified part of colon, unspecified type History of colonic polyps LIPID PANEL + CARDIAC RISK WITH REFLEX TO LDL DIRECT Routine 05/10/2010 Physical exam, annual from Last 3 Months or Most Recently Relevant to Health Maintenance Results * Due to [place] [employer] law, this organization might not be sharing negative HIV tests. * COLONOSCOPY, FLEXIBLE; WITH REMOVAL OF TUMOR(S), POLYP(S), OR OTHER LESION(S) BY SNARE TECHNIQUE (05/04/2019) Antony More MD PROCEDURES Final Result * LIPID PANEL + CARDIAC RISK WITH [...] AVERAGE) 05/10/2010 05/10/2010 6:2 3 PM EDT Yamila Gill MD LABORATORY Final Result [facility] [address] [place] [address] from Last 3 Months or Most Recently Relevant to Health Maintenance Insurance [employer] [facility] [employer] [facility] [employer] Care Teams State Superintendent Of Schools Relationship Specialty Start Date End Date Randi Zayas MD [address] [place] [address] [place] [address] PCP - General Cardiology 05/06/12
== END 2024-11-09 15:30 | disposition home or self-care (01) ==
LOC: HO.HGI 14:21
PROVIDERS: PCP Physician Assistant; Visit Provider Nurse Practitioner Family
DX: Z01.818 Encounter for other preprocedural examination (principal); Z12.11 Encounter for screening for malignant neoplasm of colon; K58.1 Irritable bowel syndrome with constipation; R13.19 Other dysphagia; R14.0 Abdominal distension (gaseous)
CPT/HCPCS: 99204

== ENCOUNTER 2025-04-12 13:22 | Outpatient (AMB) | payer OTHER, SELFPAY ==
--- NOTE | 2025-04-12 13:26 | A.OFFPC_ITS ---
Vital Signs 04/12/25 13:27 Height 5 ft 8 in Weight 147 lb 6 oz BMI 22.4 BP 110/76 Blood Pressure Location Lt brachial Position Sitting Pulse 91 Pulse Source Pulse Oximeter Temp 97.3 F Temp Source Temporal Artery Scan Pulse Oximetry (%) 96 Oxygen Delivery Method Room Air Intake Visit Reasons: Annual Exam Intake Note: Patient is here today for a physical. Data Analyst Report Writer Required: No Manager Store: Not Required per policy Accompanied by: Self / Same As Patient Allergies animal dander Allergy (Mild, Verified 04/12/25 13:52) Unknown Seasonal Allergies Allergy (Mild, Verified 04/12/25 13:52) Rash mold Allergy (Unknown, Verified 04/12/25 13:52) Unknown Medication List - Last Reconciled 04/12/25 by Ronald Potts PA-C bisacodyl (Dulcolax (bisacodyl)) 10 mg (2 x 5 mg) PO BEDTIME lorazepam 1 mg PO BEDTIME 5 days polyethylene glycol 3350 (Miralax) 238 grams PO ONCE psyllium husk (Fiber (psyllium husk)) 0.4 grams PO DAILY Tobacco use date assessed: 04/12/25 Dental Screening Dental Screen Date: 04/12/25 Did you have a dental visit in the last 12 months?: Yes Did you have a dental problem in the last 6 months where you did not have access to dental care?: No Was dental information given to patient?: Patient has dentist HPI Annual Exam HPI Details Patient is a 55 y/o M here today for an annual physical. Patient has a past medical history significant for hyperlipidemia, panic di sorder, migraines, IBS-C,? tobacco use disorder. Concern-- > The patient reports a history of ophthalmic migraines characterized by visual disturbances followed by verbal difficulties and headaches. These migraines have been associated with prolonged verbal difficulties, which have been increasing in duration over time. Additionally, the patient experiences blind spots when hungry or overheated, which are not related to the migraines. .. .IBS- C:? Reports he has been suffering with IBS constipation type for many years now.? He reports he has a strong sense of anxiety chest before he has a bowel movement.? Has trialed many [id number] that have been unsecucessful. Also was prscribed IBS specific med that was unhelpful.? He does try to increase his fiber and fluids in his diet though feels it is not much. HLD: Has been statin therapy without any side effect.? We have discontinued his cholesterol medication and lipid panel has remained acceptable. Will continue to work on lifestyle modifications on reducing his high cholesterol. Unfortunately continues to smoke and does understand he needs to cut down and completely quit. .. Tobacco use disorder: Smokes 6-10 per day and reports he has not to willing to reduce his smoking at this time.? He feels smoking cigarettes helps him with his anxiety.. Vaccines:? Up-to-date with COVID vaccine, up-to-date with pneumonia vaccine, up-to-date with flu vaccine, Need Shingles vavccine, UTD with Tdap. . Colorectal cancer screening: . 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 1. Little interest or pleasure in doing things: several days 2. Feeling down, depressed, or hopeless: several days 3. Trouble falling or staying asleep, or sleeping too much: several days 4. Feeling tired or having little energy: more than half the days 5. Poor appetite or overeating: several days 6. Feeling bad about yourself - or that you are a failure or have let yourself or your family down: not at all 7. Trouble concentrating on things, such as reading the newspaper or watching television: several days 8. Moving or speaking so slowly that other people could have noticed. Or the opposite - being so fidgety or restless that you have been moving around a lot more than usual: not at all 9. Thoughts that you would be better off or of hurting yourself in some way: not at all Total score: 7 Depression Screening Interpretation: Positive Depression Screening Follow-up: Existing condition and Declines treatment Depression Screening Done: Yes 64418 - PHQ-9 Billing: Yes Source: Developed by Drs. Severiano Rodríguez, Aide Verde, Dorian Rowan and colleagues, with an educational batsheva from [employer]. Thrive Questionnaire Date Thrive assessed: 04/12/25 I am a: Patient What is your living situation today?: I have a steady place to live Within the past 12 months, did the food you bought not last and you didn't have the money to get more?: Never true Within the past 12 months, did you worry whether your food would run out before you got money to buy more?: Never true Do you have trouble paying for medicines?: No Do you have trouble getting transportation to medical appointments?: No Do you have trouble paying your heating and electricity bill?: No Do you have trouble taking care of your child, family member or friend?: No Do you have trouble with day-to-day activities such as bathing, preparing meals, shopping, managing finances, etc.?: No Are you currently unemployed and looking for a job?: No Are you interested in more education?: Yes Please select the resources that you would like help with: None Currently or been in a relationship where the following occur: No concerns reported THRIVE Score: 0 AUDIT C Alcohol Use Questionnaire (AUDIT-C) 1. How often do you have a drink containing alcohol?: Never Total Score: 0 XOCHITL-7 AMB Questionnaire XOCHITL-7 Date XOCHITL - 7 assessed: 04/12/25 Feeling nervous, anxious, or on edge: 2 = More than half the days Not being able to stop or control worryin = Several days Worrying too much about different things: 1 = Several days Trouble relaxin = Several days Being so restless that it is hard to sit still: 0 = Not at all Becoming easily annoyed or irritable: 0 = Not at all Feeling afraid as if something awful might happen: 1 = Several days Total XOCHITL-7 score (0-4 normal; 5-9 mild; 10-14 moderate; 15-21 severe): 6 Source: Developed by Drs. Severiano Rodríguez, Aide Verde, Dorian Rowan and colleagues, with an educational batsheva from [employer]. XOCHITL-7 Assessment Billing XOCHITL-7 Assessment Tool: XOCHITL-7 Assessment 06780 Review of Systems Const Denies body aches, Denies chills, Denies excessive sweating, Denies fatigue, Denies fever(s) and Reports headache(s) Eyes Denies blurry vision ENT Denies dysphagia, Denies vertigo, Denies dizziness, Reports headache(s), Denies hearing loss and Denies tinnitus Card Denies chest pain, Denies chest pain with activity, Denies syncope, Denies irregular heart rhythm and Denies dyspnea Resp Denies chest congestion, Denies cough, Denies hemoptysis, Denies dyspnea and Denies wheezing GI Denies abdominal pain, Denies melena, Denies hematochezia, Denies coffee ground emesis, Denies dysphagia, Denies diarrhea, Denies nausea and Denies vomiting Denies difficulty urinating, Denies dysuria, Denies urinary frequency, Denies urinary hesitancy and Denies urinary urgency Musc Details: + word finding associated with his migraines Denies arthralgias, Denies limited range of motion, Denies muscle cramps and Denies muscle weakness Skin/Breast Denies rash and Denies skin ulcer Neuro Denies Abnormal speech present, Denies confusion, Denies vertigo, Denies dizziness, Denies syncope, Reports headache(s), Denies memory loss and Denies seizure-like activity Psych Denies anxiety, Denies confusion, Denies depression, Denies memory loss, Denies panic attacks and Denies paranoia Endo Denies excessive sweating, Denies fatigue, Denies flushing, Denies polydipsia and Denies polyuria Aller/Immun Denies wheezing Physical exam (Primary Care) Vital Signs: Last Vital Signs Temp 97.3 F 04/12/25 13:27 Pulse 91 04/12/25 13:27 BP 110/76 04/12/25 13:27 Pulse Ox 96 04/12/25 13:27 Oxygen Delivery Method Room Air 04/12/25 13:27 BMI result Body Mass Index 22.4 Tobacco/Smoking Status: Tobacco use Status Tobacco use date assessed 04/12/25 04/12/25 13:32 Patient Tobacco Use Status Current everyday Tobacco 04/12/25 13:32 Tobacco use type Cigarette 04/12/25 13:32 e-Cigarette/Vaping Use Never Used 04/12/25 13:32 Are you ready to quit: No Tobacco cessation counseling provided: Yes Items discussed: Nicotine replacement Relapse Prevention: discussed the importance of a supportive environment, discussed negative mood or depression after quitting, weight gain after smoking is common and discussed dietary, exercise and/or lifestyle changes Number of minutes spent counselin CPT code: 52563 - 4-10 Minutes PHQ-9: PHQ-9 Score PHQ-9: Total score 7 04/12/25 13:32 Depression Screening Interpretation: Positive Depression Screening Follow-up: Existing condition and Declines treatment Thrive Assessment: Date of Thrive Assessment Date Thrive assessed 04/12/25 04/12/25 13:32 Currently or been in a relationship where the following occur: No concerns reported Const General: cooperative, comfortable, no acute distress, alert and awake; No confusion Orientation/consciousness: oriented to person, oriented to place, patient oriented x3 and No confusion HENMT Head: Yes normocephalic Ears: external ears normal and TM's normal bilaterally Face and sinus: No sinus tenderness Mouth: Normal oral and palatal mucosa present and tongue normal Teeth and gingiva: dentition normal and gingiva normal Throat: Yes posterior oropharynx normal, Yes tonsils normal and Yes uvula midline Eyes Conjunctivae: conjunctivae normal Sclerae: sclerae normal Pupils: Equal, round and reactive pupils present EOM: EOMs intact bilaterally Direct Ophthalmoscopy: No no photophobia Neck Neck: Yes no lymphadenopathy, No tender and Yes no JVD Thyroid: Thyroid normal Carotids: no bruits Chest Chest palpation & inspection: no tenderness Resp Effort & Inspection: normal respiratory effort, no audible wheezes, not labored and no stridor Auscultation: no crackles, no rales, no rhonchi and no wheezes Cardio Jugular venous distension: no JVD Rate: regular rate, not bradycardic and not tachycardic Rhythm: regular rhythm Bruits: no carotid bruits Peripheral pulses: Peripheral pulses 2+ throughout GI Inspection: Yes normal to inspection, No abdominal wall ecchymosis and No visible herniation Palpation (GI): Soft to palpation, nontender, no guarding, not rigid and No hepatosplenomegaly present Auscultation: normoactive bowel sounds General: Yes no CVA tenderness Back/Spine/Pelvis Back: no CVA tenderness and No back tenderness Cervical Spine: cervical ROM normal Thoracic/Lumbar Spine: thoracic and lumbar spine normal to inspection, straight leg raise negative bilaterally, No thoraco-lumbar ROM limited and No lumbar spinal tenderness Skin Lesions: no lesions Rashes: no rashes Wounds: no wounds Neuro General: oriented to person, oriented to place, patient oriented x3, CN's II-XI intact bilaterally and No confusion Cranial nerves: Yes Equal, round and reactive pupils present and Yes Normal accommodation reflex present Cognition (Neuro): normal cognition Speech: No Abnormal speech present Gait exam (Neuro): Normal gait present Motor exam (neuro): 5/5 motor strength present throughout Extrem Right upper extremity: full ROM; no cyanosis Left upper extremity: full ROM; no cyanosis Right lower extremity: no edema Left lower extremity: no edema Psych Appearance: grossly normal Mental Status: mental status grossly normal Affect: normal affect Attitude: cooperative Thought process: Normal thought process present Coding Level of Care Code Est Pt Prev Care 40-64y(89789) Diagnoses Annual physical exam Z00.00 Mixed hyperlipidemia E78.2 Hyperlipidemia type: mixed hyperlipidemia XOCHITL (generalized anxiety disorder) F41.1 Tobacco dependence F17.200 Word finding difficulty R47.89 Additional Codes XOCHITL-7 Assessment Billing - XOCHITL-7 Assessment Tool: XOCHITL-7 Assessment 00553 ([id number]) PHQ-9 - 43374 - PHQ-9 Billing: Yes ([id number]) Vital Signs *Quality* - CPT code: 65348 - 4-10 Minutes ([id number]) Assessment & Plan Assessment & Plan (1) Annual physical exam: Code(s): Z00.00 - Encounter for general adult medical examination without abnormal findings Category: Medical Plan: As per HPI (2) HLD (hyperlipidemia): Code(s): E78.5 - Hyperlipidemia, unspecified Category: Medical Qualifiers: Hyperlipidemia type: mixed hyperlipidemia Qualified Code(s): E78.2 - Mixed hyperlipidemia Plan: Patient continues off of cholesterol medication. Will check lipid panel to ensure normal. (3) XOCHITL (generalized anxiety disorder): Code(s): F41.1 - Generalized anxiety disorder Category: Medical Plan: Patient's XOCHITL-7 score positive for anxiety which has been existing condition for him. Not interested in mental health therapy or mental health medication at this time. (4) Tobacco dependence: Code(s): F17.200 - Nicotine dependence, unspecified, uncomplicated Category: Medical Plan: Patient does (5) Word finding difficulty: Code(s): R47.89 - Other speech disturbances Category: Medical Plan: The patient experiences ophthalmic migraines characterized by visual disturbances, verbal difficulties, and headaches. The verbal difficulties have been increasing in duration over time. A CT scan is being considered to rule out any intracranial pathology, with emphasis on the patient's word-finding difficulties and visual field defects. Orders: Orders Comprehensive [place]. Panel Fast Today Z13.1 - Encounter for screening for diabetes mellitus CT head/brain w IV con Today R47.89 - Other speech disturbances Lipid Panel Today E78.2 - Mixed hyperlipidemia Complete Blood Count no Diff Today E78.2 - Mixed hyperlipidemia Prostate Specific Antigen Scr Today E78.2 - Mixed hyperlipidemia, Z12.5 - Encounter for screening for malignant neoplasm of prostate
[2025-04-12 13:27] VITALS: BP 110/76; PULSE 91; TEMP 36.3; O2SAT 96; BMI 22.4
--- OUTSIDE RECORDS SUMMARY | 2025-04-12 18:34 | XMS_ITS | Encounter Summary ---
Author Organization [facility] Address [address] [place] [address] Care Team Providers Care Power And Recovery Supervisor Name Role Phone Randi Zayas MD Primary Care Provider [phone] Encounter Details Date Type Department Care Team (Late st Contact Info) Description 03/18/2024 Telephone [facility] [address] [place] [address] [phone] Antony More MD [address] [place] [id number] Social History Tobacco Use Types Packs/Day Years [...] on filedocumented in this encounter Care Teams Power And Recovery Supervisor Relationship Specialty Start Date End Date Randi Zayas MD [address] [place] [address] [place] [address] PCP - General Cardiology 05/06/12 documented as of this encounter
--- OUTSIDE RECORDS SUMMARY | 2025-04-12 18:34 | XMS_ITS | Encounter Summary ---
Author Organization [facility] Address [address] [place] [address] Care Team Providers Care Construction Site Crossing Guard Name Role Phone Randi Zayas MD Primary Care Provider Reason for Visit * Reason Comments Appointment Encounter Details Date Type Department Care Team ([facility] st Contact Info) Description 11/18/2018 Telephone [facility] [address] [place] [address] [phone] Antony More MD [address] [place] [phone] Appointment Social History Tobacco Use Types Packs/Day [...] on filedocumented in this encounter Care Teams Construction Site Crossing Guard Relationship Specialty Start Date End Date Randi Zayas MD [address] [place] [address] Dr [place], RONDA [address] PCP - General Cardiology 05/06/12 documented as of this encounter
--- OUTSIDE RECORDS SUMMARY | 2025-04-12 18:34 | XMS_ITS | Encounter Summary ---
Author Organization [facility] Address [address] [place] [address] Care Team Providers Care Zookeeper Name Role Phone Yamila Gill MD Primary Care Provider [phone] Unknown Pcp, Non Rmg Primary Care Provider Unava Randi Salas MD Primary Care Provider [phone] Encounter Details Date Type Department Care Team (Late st Contact Info) Description 05/10/[address] [facility] Primary Care Internal Medicine [address] [place] [address] [address] [place] [phone] Yamila Gill MD [address] [address] Social History Tobacco Use Types Packs/Day Years [...] of this encounter Procedures * Due to [place] state law, this organization might not be [...] in this encounter Results * Due to [place] state law, this organization might not be sharing negative HIV tests. * LIPID PANEL + CARDIAC RISK WITH REFLEX TO LDL DIRECT (05/10/2010) CHOLESTEROL, TOTAL 160 125 - 200 MG/DL [facility] TRIGLYCERIDES 64 30 - 149 MG/DL [facility] HDL-CHOLESTEROL 40 40 - 77 MG/DL [facility] LDL-CHOLESTEROL 107 62 - 130 MG/DL [facility] Comment: RISK CATEGORY: LDL-CHOLESTEROL GOAL CHD AND CHD RISK EQUIVALENTS: <100 MULTIPLE (2+) FACTORS: <130 ZERO TO ONE RISK FACTOR: <160 CHD RELATIVE RISK RATIO (TOTAL/HDL) 4.00 0.0 - 5.0 [facility] Comment:(0.7 X AVERAGE) 05/10/2010 05/10/2010 6:2 3 PM EDT Yamila Gill MD LABORATORY Final Result Performing Organization Address City/State/[facility] Co de Phone Number [facility] [address] [place] [address] * URINALYSIS, COMPLETE (DIP & MICRO) (05/10/2010) [...] DAY RESULT Final Result [facility] [address] [place] [address] * COMPREHENSIVE METABOLIC PANEL W/GLOMERULAR FILT. RATE [...] MD LABORATORY Final Result [facility] [address] [place] [address] * (ABNORMAL) CBC 5 PART DIFF (05/10/2010) [...] DAY RESULT Final Result [facility] [address] [place] [address] documented in this encounter Visit Diagnoses Diagnosis Physical exam, annual Routine general medical examination at a health care facility documented in this encounter Care Teams Zookeeper Relationship Specialty Start Date End Date Yamila Gill MD PCP - General Internal Medicine 04/24/10 11/26/11 Unknown Pcp, Non Rmg PCP - General 11/27/11 05/05/12 Randi Zayas MD [address] [place] [address] [place] [address] PCP - General Cardiology 05/06/12 documented as of this encounter
--- OUTSIDE RECORDS SUMMARY | 2025-04-12 18:34 | XMS_ITS | Clinical Summary ---
Author Organization [facility] Address [address] [place] [address] Care Team Providers Care Communications Analyst Name Role Phone Randi Zayas MD Primary Care Provider [phone] Allergies Active Allergy Reactions Criticality Noted Date [...] eating 06/02/2010 chills after eating 06/02/2010 Immunizations Immunization Administration Dates Next Due COVID-19, mRNA (Pfizer [...] 92 06/02/2010 11:03 AM EDT Temperature 36.8 C (98.2 F) 05/05/2010 10:34 AM EDT Respiratory Rate 16 04/27/2010 4:58 PM EDT [...] (2 of 2 - PCV) 03/27/2022 03/27/2021 Colonoscopy 05/04/2024 05/04/2019, 11/27, 02/01/2014, Additional history exists COVID-19 Vaccine ( season) 2025 05/12/2022, 12/11/2021, 07/19/2021, Additional history exists Influenza (#1) 2025 07/02/2024, 05/30, 06/12/2022, Additional history exists DTaP/Tdap/Td (2 - Td or Tdap) 03/28/2032 03/28/2022 LDL Cholesterol Discontinued 05/10/2010, 05/10/2010 HPV Vaccine (No Doses Required) Completed Hep A Aged Out No longer eligi ble based on patient's age to complete this topic Hib Aged Out No longer eligi ble based on patient's age to complete this topic Meningococcal ACWY Aged Out No longer eligible based on patient's age to complete this topic Procedures * Due to [place] [employer] law, this organization might not be sharing [...] to Health Maintenance Results * Due to [place] Snap[employer] law, this organization might not be sharing [...] MD LABORATORY Final Result [facility] [address] [place] [address] from Last 3 Months or Most Recently Relevant to Health Maintenance Insurance [employer] Care Teams Communications Analyst Relationship Specialty Start Date End Date Randi Zayas MD [address] [place] [address] [place] [address] PCP - General Cardiology 05/06/12
--- OUTSIDE RECORDS SUMMARY | 2025-04-12 18:34 | XMS_ITS | Encounter Summary ---
Author Organization [facility] Address [address] [place] [address] Care Team Providers Care Compliance Vice President Name Role Phone Yamila Gill MD Primary Care Provider [phone] Unknown Pcp, Non Rmg Primary Care Provider Unava Randi Salas MD Primary Care Provider Encounter Details Date Type Department Care Team ([facility] st Contact Info) Description 05/24/2010 Orders Only [facility] Gastroenterology [address] [place] [address] Antony Lizarraga PA-C [address] [place] [phone] Social History Tobacco Use Types Packs/Day Years [...] of this encounter Procedures * Due to [place] [employer] law, this organization might not be sharing negative HIV tests. Procedure Name Priority Date/Time Associated Diagnosis Comments THYROID CASCADE Routine 05/24/2010 Constipation documented in this encounter Results * Due to [place] [employer] law, this organization might not be sharing negative HIV tests. * THYROID CASCADE (05/24/2010) TSH, THYROTROPIN 2.037 0.40 - 4.50 UIU/ML [facility] 05/24/2010 05/24/2010 4:5 1 PM EDT Antony Lizarraga PA-C LABORATORY Final Resu lt [facility] [address] [place] [address] documented in this encounter Visit Diagnoses Diagnosis Constipation Unspecified constipation documented in this encounter Care Teams Compliance Vice President Relationship Specialty Start Date End Date Yamila Gill MD PCP - General Internal Medicine 04/24/10 11/26/11 Unknown Pcp, Non Rmg PCP - General 11/27/11 05/05/12 Randi Zayas MD [address] [place] [address] [place] [address] PCP - General Cardiology 05/06/12 documented as of this encounter
== END 2025-04-12 14:13 | disposition home or self-care (01) ==
LOC: HO.HMCH 13:23
PROVIDERS: PCP Physician Assistant; Visit Provider Physician Assistant
DX: Z00.00 Encounter for general adult medical examination without abnormal findings (principal); E78.2 Mixed hyperlipidemia; F41.1 Generalized anxiety disorder; F17.200 Nicotine dependence, unspecified, uncomplicated; R47.89 Other speech disturbances

== ENCOUNTER → 2025-04-12 13:22 | Outpatient (BNVA) | payer OTHER, SELFPAY | PROVIDERS: PCP Physician Assistant; Visit Provider Physician Assistant | DX: Z00.00 Encounter for general adult medical examination without abnormal findings (principal); K58.9 Irritable bowel syndrome, unspecified; E78.2 Mixed hyperlipidemia; R47.89 Other speech disturbances; F41.1 Generalized anxiety disorder; F17.210 Nicotine dependence, cigarettes, uncomplicated | CPT/HCPCS: 96127 ==

== ENCOUNTER 2025-05-20 09:44 | Outpatient (REF) | payer OTHER, SELFPAY ==
[2025-05-20 10:42] LABS: Hematocrit 43.6 % (42.0-52.0); Hemoglobin 14.6 g/dl (14.0-18.0); Mean Corpuscular HGB Conc 33.5 g/dl (31.0-36.0); Mean Corpuscular Hemoglobin 32.0 pg (27.0-33.0); Mean Corpuscular Volume 95.6 fL (80.0-98.0); NRBC Abs Auto 0.000 X10*3/uL (0.0-0.012); NRBC Pct Auto 0.0 /100WBC (0.0-0.2); Platelet Count 263 X10*3/uL (160-400); Red Blood Count 4.56 X10*6/uL (4.60-5.80); White Blood Count 9.4 X10*3/uL (4.8-10.8)
--- OUTSIDE RECORDS SUMMARY | 2025-05-20 11:07 | XMS_ITS | Encounter Summary ---
Author Organization [facility] Address [address] [place] [address] Care Team Providers Care Linoleum Floor Layer Name Role Phone Randi Zayas MD Primary Care Provider [phone] Encounter Details Date Type Department Care Team (Late st Contact Info) Description 03/18/2024 Telephone [facility] [address] [place] [phone] Antony More MD [address] [place] [phone] Social History Tobacco Use Types Packs/Day Years [...] on filedocumented in this encounter Care Teams Linoleum Floor Layer Relationship Specialty Start Date End Date Randi Zayas MD [address] [place] [address] [place] [address] PCP - General Cardiology 05/06/12 documented as of this encounter
--- OUTSIDE RECORDS SUMMARY | 2025-05-20 11:07 | XMS_ITS | Encounter Summary ---
Author Organization [facility] Address [address] [place] [address] Care Team Providers Care Magazine Designer Name Role Phone Yaimla Gill MD Primary Care Provider [phone] Unknown Pcp, Non Rmg Primary Care Provider Unava Randi Salas MD Primary Care Provider [phone] Encounter Details Date Type Department Care Team (Late st Contact Info) Description 05/10/2010 Orders Only [facility] Primary Care Internal Medicine [address] [place] [address] [address] [place] [address] Yamila Gill MD [address] [address] Social History Tobacco Use Types Packs/Day Years [...] of this encounter Procedures * Due to [place] state law, this organization might not be [...] in this encounter Results * Due to [place] state law, this organization might not be [...] MD LABORATORY Final Result Performing Organization Address City/State/[facility] Co de Phone Number [facility] [address] [place] [address] * URINALYSIS, COMPLETE (DIP & MICRO) (05/10/2010) [...] DAY RESULT Final Result [facility] [address] [place] [address] * COMPREHENSIVE METABOLIC PANEL W/GLOMERULAR FILT. RATE [...] MD LABORATORY Final Result [facility] [address] [place] [address] * (ABNORMAL) CBC 5 PART DIFF (05/10/2010) [...] Final Result [facility] [address] [place] [address] documented in this encounter Visit Diagnoses Diagnosis Physical exam, annual Routine general medical examination at a health care facility documented in this encounter Care Teams Magazine Designer Relationship Specialty Start Date End Date Yamila Gill MD PCP - General Internal Medicine 04/24/10 11/26/11 Unknown Pcp, Non Rmg PCP - General 11/27/11 05/05/12 Randi Zayas MD [address] [place] [address] [place] [address] PCP - General Cardiology 05/06/12 documented as of this encounter
--- OUTSIDE RECORDS SUMMARY | 2025-05-20 11:07 | XMS_ITS | Encounter Summary ---
Author Organization [facility] Address [address] [place] [address] Care Team Providers Care Mattress And Foundation Sewer Name Role Phone Yamila Gill MD Primary Care Provider [phone] Unknown Pcp, Non Rmg Primary Care Provider Unava Randi Salas MD Primary Care Provider [phone] Encounter Details Date Type Department Care Team ([facility] st Contact Info) Description 05/24/2010 Orders Only [facility] Gastroenterology [address] [place] [address] Antony Lizarraga PA-C [address] [place] [address] Social History Tobacco Use Types Packs/Day Years [...] this encounter Procedures * Due to [place] [employer] law, this organization might not be sharing negative HIV tests. Procedure Name Priority Date/Time Associated Diagnosis Comments THYROID CASCADE Routine 05/24/2010 Constipation documented in this encounter Results * Due to [place] [employer] law, this organization might not be sharing negative HIV tests. * THYROID CASCADE (05/24/2010) TSH, THYROTROPIN 2.037 0.40 - 4.50 UIU/ML [facility] 05/24/2010 05/24/2010 4:5 1 PM EDT Antony Lizarraga PA-C LABORATORY Final Resu lt [facility] [address] [place] [address] documented in this encounter Visit Diagnoses Diagnosis Constipation Unspecified constipation documented in this encounter Care Teams Mattress And Foundation Sewer Relationship Specialty Start Date End Date Yamila Gill MD PCP - General Internal Medicine 04/24/10 11/26/11 Unknown Pcp, Non Rmg PCP - General 11/27/11 05/05/12 Randi Zayas MD [address] [place] [address] [place] [address] PCP - General Cardiology 05/06/12 documented as of this encounter
--- OUTSIDE RECORDS SUMMARY | 2025-05-20 11:07 | XMS_ITS | Clinical Summary ---
Author Organization [facility] Address [address] [place] [address] Care Team Providers Care Director Loan Name Role Phone Randi Zayas MD Primary Care Provider [phone] Allergies Active Allergy Reactions Criticality Noted Date [...] complete this topic Procedures * Due to [place] [employer] law, this organization might not be sharing [...] to Health Maintenance Results * Due to [place] [employer] law, this organization might not be sharing [...] MD LABORATORY Final Result [facility] [address] [place] [address] from Last 3 Months or Most Recently Relevant to Health Maintenance Insurance [employer]WORK INACTIVE [employer] NETWORK Care Teams Director Loan Relationship Specialty Start Date End Date Randi Zayas MD [address] [place] [address] [place] [address] PCP - General Cardiology 05/06/12
--- OUTSIDE RECORDS SUMMARY | 2025-05-20 11:07 | XMS_ITS | Encounter Summary ---
Author Organization [facility] Address [address] [place] [address] Care Team Providers Care Leather Goods Maker Name Role Phone Randi Zayas MD Primary Care Provider [phone] Reason for Visit * Reason Comments Appointment Encounter Details Date Type Department Care Team ([facility] Contact Info) Description 11/18/2018 Telephone [facility] [address] [place] [phone] Antony More MD [address] [place] [address] Appointment Social History Tobacco Use Types Packs/Day [...] and spoke to Arcelia in 's office Tara is still there patient. I will send a notification to the doctor and to the patient. documented in this encounter Plan of Treatment Not on file documented as of this encounter Visit Diagnoses Not on filedocumented in this encounter Care Teams Leather Goods Maker Relationship Specialty Start Date End Date Randi Zayas MD [address] [place] [address] [place] [address] PCP - General Cardiology 05/06/12 documented as of this encounter
--- OUTSIDE RECORDS SUMMARY | 2025-05-20 11:07 | XMS_ITS | Clinical Summary ---
Author Organization [facility] Address [address] [place] [address] Phone Care Team Providers Care Search Strategist Name Role Phone Ronald Potts Primary Care Provider Social History Tobacco Use Types Packs/Day Years Used Date Smoking Tobacco: Never Assessed Sex and Gender Information Value Date Recorded Sex Assigned at Not on file Legal Sex Male 8:52 PM EST Gender Identity Not on file Sexual Orientation Not on file Plan of Treatment Upcoming Encounters Date Type Department Care Team ([facility] st Contact Info) Description 05/20/2025 2:15 PM EDT Consult General Surgery - [address] [place] [address] Artemio Malave MD [address] [place] [phone] Health Maintenance Due Date Last Done Comments Colorectal Cancer Screening: Colonoscopy 1971 DTaP,Tdap,and Td Vaccines (1 - Tdap) 1990 Hepatitis B Vaccines (1 of 3 - 19+ 3-dose series) 1990 Pneumococcal Vaccine: 50+ Ye ars (1 of 1 - PCV) 2021 Zoster Vaccines (1 of 2) 2021 Depression Screening 07/29/2024 COVID-19 Vaccine (1 - 2023-2 5 season) 2025 Influenza Vaccine (#1) 2025 Cholesterol Screening (Lipid Panel) 05/14/2025 HIV Screening 05/14/2025 Hepatitis C Screening 05/14/2025 Social Influencers of Health Screening 05/14/2025 RSV Immunization Adult Patie nts (1 - 1-dose 75+ series) 2046 HIB Vaccines Aged Out No longer eligi ble based on patient's age to complete this topic HPV Vaccines Aged Out No longer eligi ble based on patient's age to complete this topic Hepatitis A Vaccines Aged Out No long er eligible based on patient's age to complete this topic IPV Vaccines Aged Out No longer eligi ble based on patient's age to complete this topic MMR Vaccines Aged Out No longer eligi ble based on patient's age to complete this topic Meningococcal ACWY Vaccine Aged Out N o longer eligible based on patient's age to complete this topic Meningococcal B Vaccine Aged Out No l onger eligible based on patient's age to complete this topic RSV Immunization Patients Un nicki 20 months Aged Out No longer eligible b ased on patient's age to complete this topic Varicella Vaccines Aged Out No longer eligible based on patient's age to complete this topic Insurance [facility] Care Teams Search Strategist Relationship Specialty Start Date End Date Ronald Potts PA [address] [place] [phone] PCP - General Physician Beverage Steward 05/17/25
[2025-05-20 11:10] LABS: Alanine Aminotransferase 18 U/L (0-40); Albumin Level 4.4 g/dL (3.5-5.0); Alkaline Phosphatase 94 U/L (39-117); Anion Gap 10 (12-20); Aspartate Amino Transferase 29 U/L (5-37); Blood Urea Nitrogen 9 mg/dL (9-16); Calcium 9.0 mg/dL (8.4-10.2); Carbon Dioxide 27 mmol/L (22-29); Chloride 109 mmol/L (96-108); Cholesterol 157 mg/dL (<200); Estimated Glomerular Filt Rate > 60; HDL Cholesterol 37 mg/dL (>40); Potassium 3.8 mmol/L (3.3-5.1); Sodium 142 mmol/L (135-145); Total Protein 6.8 g/dL (6.5-8.0); Triglycerides 81 mg/dL (<150)
== END 2025-05-20 09:45 | disposition home or self-care (01) ==
LOC: HO.LAB 09:44
PROVIDERS: PCP Physician Assistant; Visit Provider Physician Assistant
DX: Z13.1 Encounter for screening for diabetes mellitus (principal); Z12.5 Encounter for screening for malignant neoplasm of prostate; E78.2 Mixed hyperlipidemia
CPT/HCPCS: 36415; 80053; 80061; 84153; 85027

== ENCOUNTER 2025-06-17 09:12 | Day surgery (SDC) | payer OTHER, SELFPAY ==
--- OUTSIDE RECORDS SUMMARY | 2025-05-20 14:15 | XMS_ITS | Encounter Summary ---
Author Organization [facility] Address [address] [place] [address] Care Team Providers Care Editor Greeting Card Name Role Phone Ronald Ptots Primary Care Provider [phone] Reason for Visit * Reason Comments Suspicious Skin Lesion * Consultation (Routine) - Authorized Specialty Diagnoses / Procedures Referred By Contac t Referred To Contact General Surgery Diagnoses Dysplastic nevus Ronald Potts PA [address] [place] [address] Phone: tel: fax: General Surgery [address] [address] Phone: tel: fax: Referral ID Status Reason Start Date Expiration Date Visits Requested Visits Authorized [id number] Authorized Specialty Services Required 05/16/2026 6 6 Encounter Details Date Type Department Care Team (Late st Contact Info) Description 05/20/2025 2:15 PM EDT Consult General [address] [address] Artemio Malave MD [address] [place] [phone] Dysplastic nevus of trunk (Primary Dx) Social History Tobacco Use Types Packs/Day Years Used Date Smoking Tobacco: Never Assessed Sex and Gender Information Value Date Recorded Sex Assigned at Not on file Legal Sex Male 8:52 PM EST Gender Identity Not on file Sexual Orientation Not on file documented as of this encounter Last Filed Vital Signs Vital Sign Reading Time Taken Comments Blood Pressure 121/79 05/20/2025 2:21 PM EDT Pulse 82 05/20/2025 2:21 PM EDT Temperature 36.4 C (97.5 F) 05/20/2025 2:21 PM EDT Respiratory Rate - - Oxygen Saturation - - Inhaled Oxygen Concentration - - Weight 69.4 kg (153 lb) 05/20/2025 2:21 PM EDT Height - - Body Mass Index - - documented in this encounter Progress Notes * Artemio Malave MD - 05/20/2025 2:15 PM EDT Referring MD:Ronald Potts PA Hank Pacheco is a 55 y.o. year old male who presents for outpatient consultation regarding the management of dysplastic nevus of the left lower back, small irregular pigmented lesion with shave biopsyperformed April 15 of this year by Dr. Wilson. Was asymptomatic prior to excision. No personal or family history of malignant melanoma. ROS: GENERAL: No malaise, significant weight loss or fever PAST MEDICAL HISTORY: There are no active problems to display for this patient. PAST SURGICAL HISTORY: Surgical History[1] SOCIAL HISTORY: Social History Tobacco Use Smoking status: Not on file Smokeless tobacco: Not on file Substance Use Topics Alcohol use: Not on file 1/2 pack/day clove cigarettes FAMILY HISTORY: Family History[2] No family status information on file. ACTIVE MEDICATIONS: Medications Taking[3] ALLERGIES: Allergies[4] PHYSICAL EXAM: Visit Vitals BP 121/79 Pulse 82 Temp 36.4 ??C (97.5 ??F) (Temporal) Wt 69.4 kg (153 lb) Pleasant well nourished , well developed a bearded white male in no acute distress. His sclera are non-icteric. His pupils are round. His extraocular muscles are grossly intact. His lungs are clear, expiratory wheezes to all medel. His heart has a regular rate and rhythm. Healing biopsy scab with a focus of residual hyperpigmentation at 1 edge, left lower lateral back, about 2.5 fingerbreadths above his belt line. He is alert and oriented to time and place and reason for this consultation. LABS: No results found for: WBC , HGB , HCT , MCV No results found for: NA , K , CO2 , CL , BUN , GLU , ALB , ALKPHOS , TP IMAGING: IMPRESSION: 1. Dysplastic nevus of trunk Plan: Excision with visually-clear margins here under local at some point over the next few months. Dissolving suture closure, follow-up as needed. He accepts the risks of bleeding, infection, persistence/recurrence, need for further procedures, unsightly scar. Medication and lab orders: No orders of the defined types were placed in this encounter. Other orders: [1] No past surgical history on file. [2] No family history on file. [3] No outpatient medications have been marked as taking for the 05/20/25 encounter (Consult) with Artemio Malave MD. [4] No Known Allergies documented in this encounter Plan of Treatment Not on file documented as of this encounter Visit Diagnoses Diagnosis Dysplastic nevus of trunk- Primary Benign neoplasm of skin of trunk, except scrotum documented in this encounter Orders Outpatient Referral Count Last Ordered Date Fir st Ordered Date AMB REFERRAL TO GENERAL SURGERY 1 5 documented in this encounter Care Teams Editor Greeting Card Relationship Specialty Start Date End Date Ronald Potts PA [address] [place] [phone] PCP - General Physician Rn Labor Delivery 05/17/25 documented as of this encounter
--- OUTSIDE RECORDS SUMMARY | 2025-05-21 13:40 | XMS_ITS | Encounter Summary ---
Author Organization [facility] Address [address] [place] [address] Care Team Providers Care Test Rider Name Role Phone Randi Zayas MD Primary Care Provider [phone] Encounter Details Date Type Department Care Team (Late st Contact Info) Description 03/18/2024 Telephone [facility] [address] [place] [phone] Antony More MD [address] [place] [phone] Social History Tobacco Use Types Packs/Day Years [...] on filedocumented in this encounter Care Teams Test Rider Relationship Specialty Start Date End Date Randi Zayas MD [address] [place] [address] [place] [address] PCP - General Cardiology 05/06/12 documented as of this encounter
--- OUTSIDE RECORDS SUMMARY | 2025-05-21 13:40 | XMS_ITS | Encounter Summary ---
Author Organization [facility] Address [address] [place] [address] Care Team Providers Care Sheriff Officer Name Role Phone Yamila Gill MD Primary Care Provider [phone] Unknown Pcp, Non Rmg Primary Care Provider Unava Randi Salas MD Primary Care Provider [phone] Encounter Details Date Type Department Care Team ([facility] st Contact Info) Description 05/24/[address] [facility] Gastroenterology [address] [place] [address] Antony Lizarraga PA-C [address] [place] [address] Social History Tobacco Use Types Packs/Day Years [...] of this encounter Procedures * Due to [place] [employer] law, this organization might not be sharing negative HIV tests. Procedure Name Priority Date/Time Associated Diagnosis Comments THYROID CASCADE Routine 05/24/2010 Constipation documented in this encounter Results * Due to [place] [employer] law, this organization might not be sharing negative HIV tests. * THYROID CASCADE (05/24/2010) TSH, THYROTROPIN 2.037 0.40 - 4.50 UIU/ML [facility] 05/24/2010 05/24/2010 4:5 1 PM EDT Antony Lizarraga PA-C LABORATORY Final Resu lt [facility] [address] [place] [address] documented in this encounter Visit Diagnoses Diagnosis Constipation Unspecified constipation documented in this encounter Care Teams Sheriff Officer Relationship Specialty Start Date End Date Yamila Gill MD PCP - General Internal Medicine 04/24/10 11/26/11 Unknown Pcp, Non Rmg PCP - General 11/27/11 05/05/12 Randi Zayas MD [address] [place] [address] [place] [address] PCP - General Cardiology 05/06/12 documented as of this encounter
--- OUTSIDE RECORDS SUMMARY | 2025-05-21 13:40 | XMS_ITS | Encounter Summary ---
Author Organization [facility] Address [address] [place] [address] Care Team Providers Care Patient Information Coordinator Name Role Phone Randi Zayas MD Primary Care Provider [phone] Reason for Visit * Reason Comments Appointment Encounter Details Date Type Department Care Team ([facility] Contact Info) Description 11/18/2018 Telephone [facility] [address] [place] [phone] Antony More MD [address] [place] [address] Appointment Social History Tobacco Use Types Packs/Day [...] on filedocumented in this encounter Care Teams Patient Information Coordinator Relationship Specialty Start Date End Date Randi Zayas MD [address] [place] [address] [place] [address] PCP - General Cardiology 05/06/12 documented as of this encounter
--- OUTSIDE RECORDS SUMMARY | 2025-05-21 13:40 | XMS_ITS | Clinical Summary ---
Author Organization [facility] Address [address] [place] [address] Phone Care Team Providers Care Career Services Representative Name Role Phone Ronald Potts Primary Care Provider Allergies No known active allergies Medications No known medications Encounters Date Type Department Care Team Description 05/20/2025 2:15 PM EDT Consult General Surgery - [address] [address] Artemio Malave MD Dysplastic nevus of trunk (Primary Dx) from Last 3 Months Social History Tobacco Use Types Packs/Day Years [...] - - Body Mass Index - - Plan of Treatment Health Maintenance Due Date Last Done Comments Hepatitis B Vaccines (1 of 3 - 19+ 3-dose series) 1990 Zoster Vaccines (1 of 2) 2021 Pneumococcal Vaccine: 50+ Years (2 of 2 - PCV) 03/27/2022 03/27/2021 Depression Screening 07/29/2024 COVID-19 Vaccine ( season) 2025 05/12/2022, 12/11/2021, 07/19/2021, Additional history exists Influenza Vaccine (#1) 2025 , 06/21/2023, 06/12/2022, Additional history exists Cholesterol Screening (Lipid Panel) 05/14/2025 HIV Screening 05/14/2025 Hepatitis C Screening 05/14/2025 Social Influencers of Health Screening 05/14/2025 Colorectal Cancer Screening: Colonoscopy 05/04/2029 05/04/2019 DTaP,Tdap,and Td Vaccines (2 - Td or Tdap) 03/28/2032 03/28/2022 RSV Immunization Adult Patients (1 - 1-dose 75+ series) 2046 HIB [...] to complete this topic RSV Immunization Patients Under 20 months Aged Out No longer eligible based on patient's age to complete this topic Varicella Vaccines Aged Out No longer eligible based on patient's age to complete this topic Insurance [facility] Care Teams Career Services Representative Relationship Specialty Start Date End Date Ronald Potts PA [address] [place] [address], [place] [phone] PCP - General Physician Tile Sprayer 05/17/25
--- OUTSIDE RECORDS SUMMARY | 2025-05-21 13:40 | XMS_ITS | Clinical Summary ---
Author Organization [facility] Address [address] [place] [address] Care Team Providers Care Starch Factory Laborer Name Role Phone Randi Zayas MD Primary Care Provider [phone] Allergies Active Allergy Reactions Criticality Noted Date [...] complete this topic Procedures * Due to [place] [employer] law, this organization might not be sharing [...] to Health Maintenance Results * Due to [place] [employer] law, this organization might not be sharing [...] MD LABORATORY Final Result [facility] [address] [place] [address] from Last 3 Months or Most Recently Relevant to Health Maintenance Insurance [employer] INACTIVE [employer] Care Teams Starch Factory Laborer Relationship Specialty Start Date End Date Randi Zayas MD [address] [place] [address] [place] [address] PCP - General Cardiology 05/06/12
--- OUTSIDE RECORDS SUMMARY | 2025-05-21 13:41 | XMS_ITS | Encounter Summary ---
Author Organization [facility] Address [address] [place] [address] Care Team Providers Care Patient Financial Advocate Name Role Phone Yamila Gill MD Primary Care Provider [phone] Unknown Pcp, Non Rmg Primary Care Provider Unava Randi Salas MD Primary Care Provider [phone] Encounter Details Date Type Department Care Team (Late st Contact Info) Description 05/10/2010 Orders Only [facility] Primary Care Internal Medicine [address] [place] [address] [address] [place] [address] Yamila Gill MD [address] [address] Social History Tobacco Use Types Packs/Day Years [...] of this encounter Procedures * Due to [place] state law, this organization might not be [...] in this encounter Results * Due to [place] state law, this organization might not be [...] MD LABORATORY Final Result Performing Organization Address City/State/[facility] Co de Phone Number [facility] [address] [place] [address] * URINALYSIS, COMPLETE (DIP & MICRO) (05/10/2010) [...] DAY RESULT Final Result [facility] [address] [place] [address] * COMPREHENSIVE METABOLIC PANEL W/GLOMERULAR FILT. RATE [...] MD LABORATORY Final Result [facility] [address] [place] [address] * (ABNORMAL) CBC 5 PART DIFF (05/10/2010) [...] Final Result [facility] [address] [place] [address] documented in this encounter Visit Diagnoses Diagnosis Physical exam, annual Routine general medical examination at a health care facility documented in this encounter Care Teams Patient Financial Advocate Relationship Specialty Start Date End Date Yamila Gill MD PCP - General Internal Medicine 04/24/10 11/26/11 Unknown Pcp, Non Rmg PCP - General 11/27/11 05/05/12 Randi Zayas MD [address] [place] [address] [place] [address] PCP - General Cardiology 05/06/12 documented as of this encounter
--- NOTE | 2025-06-15 09:00 | P.CONAN_ITS ---
Documented by User: Pushpa Rubio NP 06/15/25 09:01 HPI - Anesthesia Eval Consult details Narrative: 55yo M for Upper Endoscopy and Colonoscopy PMF Active Problems Active Problems: All Active Problems Word finding difficulty (Acute) Skin lesion of back (Acute) Colon cancer screening (Acute) Tobacco dependence (Acute) Annual physical exam (Acute) Migraines (Acute) Neuropathy (Acute) IBS (irritable colon syndrome) (Acute) Annual physical exam (Acute) Screening for hypothyroidism (Acute) Screening for diabetes mellitus (DM) (Acute) XOCHITL (generalized anxiety disorder) (Acute) Smoker (Acute) HLD (hyperlipidemia) (Acute) Past Medical History Medical History HLD (hyperlipidemia) XOCHITL (generalized anxiety disorder) IBS (irritable bowel syndrome) Tobacco dependence Migraines Cervical myelopathy Family History Family History Father Pancreatic cancer Mother Breast cancer Liver cancer Maternal Grandfather Heart disease Surgical History Surgical History H/O colonoscopy History of tooth extraction History of third molar tooth extraction, class I edentulism Social History Social History Housing: House Alcohol intake: never Patient Tobacco Use Status: Current everyday Tobacco user Tobacco use type: Cigarette Cigarette Packs Per Day: 0.5 Cigarettes Per Day: 10 e-Cigarette/Vaping Use: Never Used Second Hand Smoke Exposure: Yes Advance Directives: No Advance Directives Information Provided: Yes service: No Current occupational status: 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 Cognitive needs: No Hearing needs: No Vision needs: Yes (glasses) Meds Allergies Allergy/AdvReac Type Severity Reaction Status Date / Time Seasonal Allergies Allergy Mild Rash Verified 04/12/25 13:52 animal dander Allergy Unknown Unknown Verified 06/15/25 14:52 mold Allergy Unknown Unknown Verified 04/12/25 13:52 Home Medications ?Medication ?Instructions ?Recorded ?Confirmed ?Last Taken ?Type psyllium husk 0.4 gram capsule 0.4 g PO DAILY 11/09/24 06/15/25 Unknown History (Fiber (psyllium husk)) Assessment and Plan Assessment Anesthesia Assessment: Chart Reviewed Documented by User: Anjana Helm MD 06/17/25 10:52 [facility] Past Medical History Medical History HLD (hyperlipidemia) XOCHITL (generalized anxiety disorder) IBS (irritable bowel syndrome) Tobacco dependence Migraines Cervical myelopathy Family History Family History Father Pancreatic cancer Mother Breast cancer Liver cancer Maternal Grandfather Heart disease Family history of problems with anesthesia: No Surgical History Surgical History H/O colonoscopy History of tooth extraction History of third molar tooth extraction, class I edentulism History of Problems with Anesthesia: No Social History Social History Housing: House Alcohol intake: never Patient Tobacco Use Status: Current everyday Tobacco user Tobacco use type: Cigarette Cigarette Packs Per Day: 0.5 Cigarettes Per Day: 10 e-Cigarette/Vaping Use: Never Used Second Hand Smoke Exposure: Yes Advance Directives: No Advance Directives Information Provided: Yes service: No Current occupational status: 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 Cognitive needs: No Hearing needs: No Vision needs: Yes (glasses) Meds Allergies Allergy/AdvReac Type Severity Reaction Status Date / Time Seasonal Allergies Allergy Mild Rash Verified 04/12/25 13:52 animal dander Allergy Unknown Unknown Verified 06/15/25 14:52 mold Allergy Unknown Unknown Verified 04/12/25 13:52 Home Medications ?Medication ?Instructions ?Recorded ?Confirmed ?Last Taken ?Type psyllium husk 0.4 gram capsule 0.4 g PO DAILY 11/09/24 06/15/25 Unknown History (Fiber (psyllium husk)) Exam Airway Mallampati Class: II TM Dist: >3cm Neck ROM: Full Heart: rrr Lungs: cta Assessment and Plan Assessment Anesthesia Assessment: Anesthesia Plan Discussed Final Anesthetic Review Family History of Problems with Anesthesia: No History of Problems with Anesthesia: No NPO: Yes ASA Class: III Final Preanesthetic Review: No Changes in Pt Med Stat, Meds/Allgs Chart Reviewed, Consent Obtained/Reviewed and Anes Risks/Benef Reviewed Patient Risk: Intermediate Procedure Risk: Low Anesthetic Plan Anesthetic Plan: MAC: and Agree w/ Assess. and Plan Disposition: Standard PACU
[2025-06-15 14:52] VITALS: BMI 22.4
[2025-06-17 10:57] VITALS: BMI 23.1
--- NOTE | 2025-06-17 11:15 | MHC.SHP ---
Pre-Procedural Eval Section A - 24 Hr Update-Section A only Date of Service: 06/17/25 Section B - Complete if H&P > 30 days Chief Complaint: screening,epigastric pain,dysphagia Relevant Family History (Specify if Yes): No Relevant Social History: Tobacco Use Present Medications: see Short Stay Collaborative assessment Medical History: Significant History ( Cervical myelopathy, IBS, anxiety ) History of Previous Operations: Relevant previous surgery/procedure and date(s) ( H/O colonoscopy History of tooth extraction History of third molar tooth extraction, class I edentulism) Allergies: Allergies Allergy/AdvReac Type Severity Reaction Status Date / Time Seasonal Allergies Allergy Mild Rash Verified 06/17/25 10:59 animal dander Allergy Unknown Unknown Verified 06/17/25 10:59 mold Allergy Unknown Unknown Verified 06/17/25 10:59 Review of Systems Sugical H&P ROS: Negative: Constitution, Cardiovascular, Respiratory, Neurological, Psychiatric, Hem-Onc, Allergic/Immunologic, Gastrointestinal, Genitourinary, Musculoskeletal, Integumentary, Endocrine and Eyes/Ears/Nose/Throat Exam Surgical H&P Exam: Normal: HEENT, Normal: Heart, Normal: Lungs, Normal: Extremities, Normal: Abdomen, Normal: Skin and Normal: Neurological Plan Diagnosis/Plan: Unchanged I have reviewed the history and physical and performed a pertinent physical examination on my patient. No changes have occurred unless specified. Time Spent With Patient Time: Total time managing care of this patient today ____ minutes.
[2025-06-17] MEDS: Albuterol Sulfate (0.083%) 2.5 MG/3 ML VIAL.NEB INHALE (11:16)
[2025-06-17 11:18] VITALS: PULSE 87; RESP 16
[2025-06-17 11:19] VITALS: BP 124/77; PULSE 77; RESP 16; TEMP 37; O2SAT 98
[2025-06-17] MEDS: Lactated Ringers 1,000 ML 100 ML IVCONT (11:25)
--- NOTE | 2025-06-17 13:12 | P.OPN-COLO_ITS ---
Colonoscopy Operative Note Operative Note Date of Service: 06/17/25 Narrative: Operative Information Procedure Description: EGD, Colonoscopy Indication: GERD, screening Anesthesia: MAC FLEXIBLE TRANSORAL UPPER GASTROINTESTINAL ENDOSCOPY AND COLONOSCOPY PROCEDURE NOTE UPPER ENDOSCOPY Consent: Indications for the procedure and potential complications of bleeding, perforation, reaction to medications and missed diagnosis were discussed with the patient and informed consent was obtained. Instrument: Olympus GIF H 190 J mid size upper endoscope Monitoring: Vital signs and clinical assessment, continuous EKG monitoring, Pulse oximetry, Carbon Dioxide monitoring and blood pressure monitoring were done throughout the procedure. Procedure: The patient was placed in the left lateral decubitis position and pre-procedure medications were administered and a bite block was placed. The endoscope was inserted into the mouth and advanced under direct vision to the third part of duodenum. A careful inspection was made as the upper endoscope was withdrawn including a retroflexed examination of the proximal stomach; Findings and interventions are described below. Findings: Larynx:normal Esophagus: GE junction at 42 cm, diaphragm hiatus at 42 cm, boggy erythema at GEJ with schatzki ring, bx taken also from distal and proximal esophagus, balloon dilation to 20 mm at LES and UES, no tears seen Stomach: Patchy erythema Biopsies were obtained. Grade 2 flap valve on retroflexed examination of the cardia. At the antrum a ulcerated lesion with eschar noted about 10 mm, bx taken. some bile acid reflux noted as well. Few scattered fundic gland polyps noted. Duodenum: mild duodenitis , bx taken Intervention: Biopsies as noted above, balloon dilation COLONOSCOPY Instrument: Olympus variable stiffness pediatric scope 190L Colonoscopy Monitoring: Vital signs and clinical assessment, continuous EKG monitoring, Pulse oximetry, Carbon Dioxide monitoring and blood pressure monitoring were done throughout the procedure. Colon withdrawal time was 13 minutes. Procedure: The patient was placed in the left lateral decubitis position and pre-procedure medications were administered. After a digital rectal examination of the ano-rectum, the video colonoscope was inserted into the rectum and advanced through the colon to the cecum/TI. The colonoscope was slowly withdrawn in a retrograde panoramic fashion and the colon mucosa was carefully examined including a retroflexed view of the rectum. Findings and interventions are described below. Procedure Difficulty: easy Findings: Terminal Ileum-normal Cecum:normal right sided retroflexion- normal Ascending Colon: 5-6 mm sessile polyp removed with cold forceps Transverse Colon -normal Descending Colon:normal Sigmoid Colon: moderate diverticulosis Rectum: Retroflexion with small internal hemorrhoids, grade I Anorectum - normal Colon preparation: [place] Bowel Preparation Scale Right colon; 2 Transverse colon: 2 Left colon; 2 (0 = Unprepared colon segment with mucosa not seen due to solid stool that cannot be cleared. 1 = Portion of mucosa of the colon segment seen, but other areas of the colon segment not well seen due to staining, residual stool and/or opaque liquid. 2 = Minor amount of residual staining, small fragments of stool and/or opaque liquid, but mucosa of colon segment seen well. 3 = Entire mucosa of colon segment seen well with no residual staining, small fragments of stool or opaque liquid) Impression and Post Procedure Diagnosis: Endoscopy Findings: gastritis, with some bile acid reflux esophagitis duodenitis schatzki ring fundic gland polyps Colonoscopy Findings: diverticulosis colon polyp x 1 internal hemorrhoids Plan: Await Pathology results Repeat Colonoscopy in 5-7 years if adenomatous polyp, 10 yrs if non pre cancerous polyp or earlier if clinically indicated High fiber diet leaflet avoid straining at stool, epsom salts and sitz bath, anusol supps or cream trial of pantoprazole, smoking cessation avoid nsaids if h pylori pos then treat Above findings were reviewed with the patient and relevant handouts were provided if indicated.
[2025-06-17 13:17] VITALS: BP 91/50; PULSE 102; RESP 16; TEMP 36.6; O2SAT 98
[2025-06-17 13:32] VITALS: BP 99/67; PULSE 96; RESP 16; O2SAT 100
[2025-06-17 13:44] VITALS: BP 103/64; PULSE 79; RESP 16; TEMP 36.4; O2SAT 100
== END 2025-06-17 14:10 | disposition home or self-care (01) ==
PROVIDERS: PCP Physician Assistant; Visit Provider Internal Medicine Gastroenterology
PROC: (CPT 45380; principal; 2025-06-17 12:40)
DX: Z12.11 Encounter for screening for malignant neoplasm of colon (principal); R10.13 Epigastric pain; R13.10 Dysphagia, unspecified; Z86.0109 Personal history of other colon polyps; K58.9 Irritable bowel syndrome, unspecified; K59.04 Chronic idiopathic constipation; R13.19 Other dysphagia; K31.7 Polyp of stomach and duodenum; K64.0 First degree hemorrhoids; K57.30 Diverticulosis of large intestine without perforation or abscess without bleeding; K22.2 Esophageal obstruction; K29.80 Duodenitis without bleeding; D12.2 Benign neoplasm of ascending colon
CPT/HCPCS: 45380; 43239; 43249; 88305; 88313; 88342; 94640; C1726; J2003; J2704

== ENCOUNTER → 2025-06-17 09:12 | Outpatient (BNV) | payer OTHER, SELFPAY | PROVIDERS: PCP Physician Assistant; Visit Provider Internal Medicine Gastroenterology | DX: Z12.11 Encounter for screening for malignant neoplasm of colon (principal); K63.5 Polyp of colon; K57.30 Diverticulosis of large intestine without perforation or abscess without bleeding; K64.0 First degree hemorrhoids; R13.10 Dysphagia, unspecified; K22.2 Esophageal obstruction; K29.70 Gastritis, unspecified, without bleeding; K31.7 Polyp of stomach and duodenum; K29.80 Duodenitis without bleeding | CPT/HCPCS: 43239; 43249; 45380 ==

== ENCOUNTER 2025-07-02 16:21 | Outpatient (REF) | payer OTHER, SELFPAY ==
--- NOTE | ~2025-07-02 | CT_ITS ---
EXAMINATION: CT HEAD WITHOUT CONTRAST CLINICAL INFORMATION: R47.89 - Other speech disturbances COMPARISON: None available. TECHNIQUE: Contiguous axial imaging was performed from the skull base to vertex without intravenous administration of contrast. This CT examination was performed using dose optimization techniques as appropriate, variously including the following: *Automated exposure control *Adjustment of mA and/or kV according to patient size (this includes techniques or standardized protocols for targeted exams where dose is matched to indication/reason for exam; i.e. extremities or head) *Use of iterative reconstruction technique FINDINGS: There is no acute ischemic change. There is no intracranial hemorrhage. There is no mass-effect or midline shift. Basal cisterns and ventricles are within normal limits for age/cerebral volume. Orbits are symmetrical and unremarkable. There is mucosal thickening in the frontal, ethmoid, mastoid and and sphenoid sinuses. There are no bony abnormalities. CT/CT head/brain wo IV con IMPRESSION: No acute intracranial abnormality. Pansinusitis, chronic appearing Electronically signed by: Tanner Valencia MD 07/02/2025 05:22 PM [facility]
--- OUTSIDE RECORDS SUMMARY | 2025-07-02 19:51 | XMS_ITS | Encounter Summary ---
Author Organization [facility] Address [address] [place] [address] Care Team Providers Care Video Recorder Mechanic Name Role Phone Yamila Gill MD Primary Care Provider [phone] Unknown Pcp, Non Rmg Primary Care Provider Unava Randi Salas MD Primary Care Provider [phone] Encounter Details Date Type Department Care Team (Late st Contact Info) Description 05/10/2010 Orders Only [facility] Primary Care Internal Medicine [address] [place] [address] [address] [place] [address] Yamila Gill MD [address] [address] Social History Tobacco Use Types Packs/Day Years [...] of this encounter Procedures * Due to [place] state law, this organization might not be [...] in this encounter Results * Due to [place] state law, this organization might not be [...] MD LABORATORY Final Result Performing Organization Address City/State/[facility] Co de Phone Number [facility] [address] [place] [address] * URINALYSIS, COMPLETE (DIP & MICRO) (05/10/2010) [...] DAY RESULT Final Result [facility] [address] [place] [address] * COMPREHENSIVE METABOLIC PANEL W/GLOMERULAR FILT. RATE [...] MD LABORATORY Final Result [facility] [address] [place] [address] * (ABNORMAL) CBC 5 PART DIFF (05/10/2010) [...] Final Result [facility] [address] [place] [address] documented in this encounter Visit Diagnoses Diagnosis Physical exam, annual Routine general medical examination at a health care facility documented in this encounter Care Teams Video Recorder Mechanic Relationship Specialty Start Date End Date Yamila Gill MD PCP - General Internal Medicine 04/24/10 11/26/11 Unknown Pcp, Non [facility] PCP - General 11/27/11 05/05/12 Randi Zayas MD [address] [place] [address] [place] [address] PCP - General Cardiology 05/06/12 documented as of this encounter
--- OUTSIDE RECORDS SUMMARY | 2025-07-02 19:51 | XMS_ITS | Clinical Summary ---
Author Organization [facility] Address [address] [place] [address] Phone Care Team Providers Care Deaf/Hard Of Hearing Specialist Name Role Phone Ronald Potts Primary Care Provider Allergies No known active allergies Medications No known medications Encounters Date Type Department Care Team Description 05/20/2025 2:15 PM EDT Consult General Surgery [facility] [address] [address] Artemio Malave MD Dysplastic nevus [...] Mass Index - - Plan of Treatment Upcoming Encounters Date Type Department Care Team (Late st Contact Info) Description 08/26/2025 3:30 PM EST Procedure visit General Surgery [facility] [address] [address] Artemio Malave MD [address] [phone] Health Maintenance Due Date Last Done Comments Hepatitis B Vaccines (1 of 3 - 19+ 3-dose series) 1990 Zoster Vaccines (1 of 2) 2021 Pneumococcal Vaccine: 50+ Years (2 of 2 - PCV) 03/27/2022 03/27/2021 Depression Screening 07/29/2024 COVID-19 Vaccine (6 - 2024- season) 2025 05/12/2022, 12/11/2021, 07/19/2021, Additional history [...] patient's age to complete this topic Insurance [facility] Care Teams Deaf/Hard Of Hearing Specialist Relationship Specialty Start Date End Date Ronald Potts [facility] [address] [facility] [phone] PCP - General Physician Operator Receptionist 05/17/25
--- OUTSIDE RECORDS SUMMARY | 2025-07-02 19:51 | XMS_ITS | Encounter Summary ---
Author Organization [facility] Address [address] [place] [address] Care Team Providers Care Tool Coordinator Name Role Phone Randi Zayas MD Primary Care Provider [phone] Encounter Details Date Type Department Care Team (Late st Contact Info) Description 03/18/2024 Telephone [facility] [address] [place] [phone] Antony More MD [address] [place] [phone] Social History Tobacco Use Types Packs/Day Years [...] on filedocumented in this encounter Care Teams Tool Coordinator Relationship Specialty Start Date End Date Randi Zayas MD [address] [place] [address] [place] [address] PCP - General Cardiology 05/06/12 documented as of this encounter
--- OUTSIDE RECORDS SUMMARY | 2025-07-02 19:51 | XMS_ITS | Clinical Summary ---
Author Organization [facility] Address [address] [place] [address] Care Team Providers Care Candle Wrapper Name Role Phone Randi Zayas MD Primary Care Provider [phone] Allergies Active Allergy Reactions Criticality Noted Date [...] - Td or Tdap) 03/28/2032 03/28/2022 RSV (1 - 1-dose 75+ series) 2046 LDL Cholesterol Discontinued 05/10/2010, 05/10/2010 HPV Vaccine (No Doses Required) Completed Hep A Aged Out No longer eligi ble based on patient's age to complete this topic Hib Aged Out No longer eligi ble based on patient's age to complete this topic Meningococcal ACWY Aged Out No longer eligible based on patient's age to complete this topic Procedures * Due to [place] law, this organization might not be sharing [...] to Health Maintenance Results * Due to [place] law, this organization might not be sharing [...] MD LABORATORY Final Result [facility] [address] [place] [address] from Last 3 Months or Most Recently Relevant to Health Maintenance Insurance [employer] Care Teams Candle Wrapper Relationship Specialty Start Date End Date Randi Zayas MD [address] [place] [address] [place] [address] PCP - General Cardiology 05/06/12
--- OUTSIDE RECORDS SUMMARY | 2025-07-02 19:51 | XMS_ITS | Encounter Summary ---
Author Organization [facility] Address [address] [place] [address] Care Team Providers Care Mint Wafer Depositor Name Role Phone Yamila Gill MD Primary Care Provider [phone] Unknown Pcp, Non Rmg Primary Care Provider Unava Randi Salas MD Primary Care Provider [phone] Encounter Details Date Type Department Care Team ([facility] st Contact Info) Description 05/24/[address] [facility] Gastroenterology [address] [place] [address] Antony Lizarraga PA-C [address] [place] [id number] Social History Tobacco Use Types Packs/Day Years [...] of this encounter Procedures * Due to [place] law, this organization might not be sharing negative HIV tests. Procedure Name Priority Date/Time Associated Diagnosis Comments THYROID CASCADE Routine 05/24/2010 Constipation documented in this encounter Results * Due to [place] law, this organization might not be sharing negative HIV tests. * THYROID CASCADE (05/24/2010) TSH, THYROTROPIN 2.037 0.40 - 4.50 UIU/ML [facility] 05/24/2010 05/24/2010 4:5 1 PM EDT Antony Lizarraga PA-C LABORATORY Final Resu lt [facility] [address] [place] [address] documented in this encounter Visit Diagnoses Diagnosis Constipation Unspecified constipation documented in this encounter Care Teams Mint Wafer Depositor Relationship Specialty Start Date End Date Yamila Gill MD PCP - General Internal Medicine 04/24/10 11/26/11 Unknown Pcp, Non Rmg PCP - General 11/27/11 05/05/12 Randi Zayas MD [address] [place] [address] [place] [address] PCP - General Cardiology 05/06/12 documented as of this encounter
== END 2025-07-02 16:22 | disposition home or self-care (01) ==
LOC: HO.CT 16:21
PROVIDERS: PCP Physician Assistant; Visit Provider Physician Assistant
DX: R47.89 Other speech disturbances (principal)
CPT/HCPCS: 70450

== ENCOUNTER → 2025-07-02 16:23 | Outpatient (BNV) | payer OTHER, SELFPAY | PROVIDERS: PCP Physician Assistant; Visit Provider Radiology Diagnostic Radiology | DX: R47.89 Other speech disturbances (principal) | CPT/HCPCS: 70450 ==

== ENCOUNTER 2025-07-08 09:39 | Outpatient (AMB) | payer OTHER, SELFPAY ==
--- NOTE | 2025-07-08 09:56 | MHC.OFFVIS ---
Intake Visit Reasons: H pylori Intake Note: Pt presents for H Pylori BT. Protocols reviewed with pt and confirmed to be followed. Pt advised of instructions for the test and began testing at 0950. Testing was concluded at 1005. No questions or additional concerns per pt at the end of testing. Advised pt that we will contact them with results when they are obtained. Earth Burner Required: No Accompanied by: Self / Same As Patient Allergies Seasonal Allergies Allergy (Mild, Verified 06/17/25 10:59) Rash animal dander Allergy (Unknown, Verified 06/17/25 10:59) Unknown mold Allergy (Unknown, Verified 06/17/25 10:59) Unknown PFSH Medical History HLD (hyperlipidemia) XOCHITL (generalized anxiety disorder) IBS (irritable bowel syndrome) Tobacco dependence Migraines Cervical myelopathy Surgical History H/O colonoscopy History of tooth extraction History of third molar tooth extraction, class I edentulism Family History Father Pancreatic cancer Mother Breast cancer Liver cancer Maternal Grandfather Heart disease Social History Housing: House Are you a primary home health aide caregiver to a significant other at home: No Do you presently have visiting nurse or other home services: No Alcohol intake: never Patient Tobacco Use Status: Current everyday Tobacco user Tobacco use type: Cigarette Cigarette Packs Per Day: 0.5 Cigarettes Per Day: 10 e-Cigarette/Vaping Use: Never Used Second Hand Smoke Exposure: Yes service: No Current occupational status: 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 pylori infection: Code(s): A04.8 - Other specified bacterial intestinal infections Category: Medical Plan: as above Coding Level of Care Code Procedure Only Diagnoses H. pylori infection A04.8
== END 2025-07-08 10:23 | disposition home or self-care (01) ==
LOC: HO.HGI 09:40
PROVIDERS: PCP Physician Assistant; Visit Provider Internal Medicine Gastroenterology
DX: A04.8 Other specified bacterial intestinal infections (principal)

== ENCOUNTER 2025-07-08 09:39 | Outpatient (REF) | payer OTHER, SELFPAY | END 2025-07-08 09:40 | disposition home or self-care (01) | LOC: HO.LAB 09:39 | PROVIDERS: PCP Physician Assistant; Visit Provider Internal Medicine Gastroenterology | DX: A04.8 Other specified bacterial intestinal infections (principal); K58.1 Irritable bowel syndrome with constipation | CPT/HCPCS: 83013 ==